=== PATIENT | male | born 1965 | race Caucasian/White ===

== ENCOUNTER 2024-03-18 11:08 | Observation (INO) ==
[2024-03-18 11:49] LABS: iSTAT Creatinine 2.2 mg/dl (0.6-1.3); iSTAT Ionized Calcium 1.06 mmol/l (1.12-1.32); iSTAT Potassium 3.4 mmol/L (3.3-5.0)
[2024-03-18] MEDS: SODIUM CHLORIDE 0.9% 1,000 ML IV STA (11:53)
[2024-03-18 12:11] LABS: Basophils # (auto) 0.08 K/uL (0.00-0.20); Basophils % (auto) 0.5 %; Eosinophils # (auto) 0.24 K/uL (0.00-0.50); Eosinophils % (auto) 1.5 %; Hematocrit (blood only) 46.9 % (42.0-52.0); Hemoglobin 16.2 g/dl (14.0-18.0); Immature Granulocytes # (auto) 0.08 K/uL (0.01-0.20); Immature Granulocytes % (auto) 0.5 %; Lymphocytes # (auto) 1.43 K/uL (1.20-3.40); Mean Corpuscular Hemoglobin 31.6 pg (25.0-34.0); Mean Corpuscular Hgb Conc 34.5 g/dL (32.0-36.0); Mean Corpuscular Volume 91.4 fL (80.0-100.0); Mean Platelet Volume 12.3 fL (9.4-12.4); Monocytes # (auto) 1.98 K/uL (0.11-0.59); Monocytes % (auto) 12.5 %; Neutrophils # (auto) 12.03 K/uL (1.40-6.50); Platelet Count 284 K/uL (130-400); RDW Coefficient of Variation 12.8 % (11.5-14.5); RDW Standard Deviation 43.1 fL (36.4-46.3); Red Blood Count 5.13 M/uL (4.70-6.10); White Blood Count 15.84 K/ul (4.8-10.8)
[2024-03-18 12:30] LABS: BUN Creatinine Ratio 20.4 (10-20); Calcium 9.5 mg/dl (8.6-10.3); Creatinine Clr Calc Pharmacy 45.1 ml/min; Est GFR (Non-African American) 34.5 ml/min; Potassium 3.4 mmol/L (3.5-5.1)
[2024-03-18 12:34] LABS: INR 1.3 (0.9-1.1); Partial Thromboplastin Time 27 Seconds (21-31); Prothrombin Time 13.5 Seconds (9.0-12.0)
--- NOTE | 2024-03-18 12:34 | Electrocardiogram Report ---
Test Reason : Blood Pressure : / mmHG Vent. Rate : 085 BPM Atrial Rate : 085 BPM P-R Int : 162 ms QRS Dur : 100 ms QT Int : 384 ms P-R-T Axes : 042 066 028 degrees QTc Int : 456 ms Normal sinus rhythm Normal ECG No previous ECGs available Confirmed by [place] Cheung ([id number]) on 03/18/2024 12:33:45 PM Referred By: Confirmed By:[place] Cheung
[2024-03-18 12:35] LABS: Troponin I High Sensitivity 7.9 pg/ml (0-20)
--- NOTE | 2024-03-18 12:41 | XRay Report ---
XR chest 1V not portable CLINICAL HISTORY: Sepsis. COMPARISON STUDY: No previous studies for comparison. FINDINGS: Lung volumes are mildly diminished. There is no consolidation to suggest pneumonia. Linear left lower lung density represents atelectasis. There is no pneumothorax or pleural effusion. Mild ca rdiomegaly. Mediastinal contours are normal. There is no evidence for pulmonary edema. IMPRESSION: No acute cardiopulmonary findings. ACT 112: Negative or not required by law. Electronically signed by: Abel Garrison M.D. 03/18/2024 12:40 PM
[2024-03-18 12:53] LABS: Albumin Globulin Ratio 1.1 (0.9-2); Albumin Level 4.5 gm/dl (3.4-5.0); Bilirubin,Total 2.7 mg/dl (0.2-1.0); Globulin 4.2 gm/dl (2.5-4.0); Magnesium 1.9 mg/dl (1.7-2.4); Total Protein 8.7 gm/dl (6.0-8.3)
[2024-03-18] MEDS: SODIUM CHLORIDE 0.9% 1,000 ML IV ONE (13:02)
--- NOTE | 2024-03-18 13:11 | Emergency Department Note ---
Impression & Plan Pancreatitis, Dehydration, LEILA (acute kidney injury) ED Provider Note Provider: Gustabo Huynh MD DATE OF SERVICE: 03/18/2024 CHIEF COMPLAINT: Abnormal blood work, pancreatitis HISTORY OF PRESENT ILLNESS: Patient is a 58-year-old history of hypertension presenting here today referred by his primary doctor after blood work done shows that he has pancreatitis. Patient states for about the last 10 to 14 days he is unsure and saying mid abdominal pain. States has had nausea but no significant diarrhea. Not been eating and drinking well as this makes him nauseous. States has been feeling a bit lightheaded and again has not been eating or drinking very much. States he does have maybe a drink of alcohol every day but not recently. Denies any trauma. Denies any lower abdominal pain. Denies a history of pancreatitis or kidney issues. Was scheduled to have an outpatient ultrasound today as he is a little bit tender in the upper abdomen of his gallbladder but got called by his doctor and came here for evaluation. PAST MEDICAL HISTORY: As noted above MEDICATIONS: Reviewed medications SOCIAL HISTORY: Normally 1 drink a day at the evening. PHYSICAL EXAM: GENERAL: alert and oriented in no acute distress on stretcher Head: normocephalic and atraumatic EYES: No injection, discharge or icterus. NECK: Trachea midline. ENT: Mucous membranes pink and mildly tacky LUNGS: Airway patent. No retractions. Breath sounds clear HEART: Regular rate and rhythm. No chest wall tenderness ABDOMEN: Soft and non-tender, without guarding or rebound. SKIN: Acyanotic, warm, dry, without rashes EXTREMITIES: Without swelling, tenderness or deformity NEUROLOGICAL: No focal deficits. No aphasia. No facial droop or slurred speech. Normal strength and tone in the extremities. Sensation to gross touch normal. Ambulatory. EK bpm normal sinus rhythm. No PVC or PAC. No acute ST segment elevation with some nonspecific T wave inversions. QTc 456. CONTINUOUS CARDIAC MONITORING: was ordered and showed a heart rate of 70s-80s bpm in normal sinus rhythm Patient's laboratory studies and imaging reviewed. Differential includes Appendicitis, testicular torsion, infections, diverticulitis, UTI, obstruction, mesenteric ischemia, aortic pathology, inflammatory bowel disease, renal colic, PUD, pancreatitis, biliary pathology, hernia, volvulus, constipation, as well as other pathologies. IMPRESSION/MEDICAL DECISION MAKING: Initially had some hypotension in triage but this improved quickly upon entering her room and was not optically tachycardic. Received IV fluids. Blood work reviewed from 2 days ago and repeat sent today. Evidence of worsening acute kidney injury. Lipase elevated although slightly downtrending today. LFTs mildly elevated but slightly improving today. No fevers. Slight leukocytosis with slight anemia.Troponin not elevated and doubt cardiac etiology. CT abdomen pelvis completed to further evaluate the pancreas and intra-abdominal organs. Patient does not appear severely unwell or septic at this point. Imaging does confirm acute pancreatitis with a mass or cyst lesion in the uncinate process. Acute cholecystitis is less likely in the setting of pancreatitis and no biliary duct dilations reported. Again has some slight epigastric tenderness on exam. Reached out discussed with GI on-call given leukocytosis and the CT findings in the setting of acute pancreatitis with a cyst. In discussion with Dr. Biggs agrees with plan to keep the patient here for treatments and hospitalist was consulted. Can pursue outpatient EUS not emergently. DIAGNOSIS: Pancreatitis, acute kidney injury, dehydration DISPOSITION: Hospitalist will evaluate Patient was agreeable with this plan. Past Med/Surg History Problem List (Updated 03/18/24 @ 15:42 by Jero Cheung PA-C) Alcohol use Hypocalcemia Hypokalemia LEILA (acute kidney injury) Acute pancreatitis Colon cancer screening Encounter for pre-operative examination Medical History HTN (hypertension) Surgical History No history of previous surgery Family History Other No family history of adverse response to anesthesia Social History Smoking Status: Never smoker Do You Dip or Chew Tobacco: No; Hx Alcohol Use: Yes Alcohol type: hard liquor Hx Substance Use: No Preferred Language: Upper Sorbian Communication Ability: Effective Clinical Psychologist Licensed Required: No Beliefs That Will Affect Care: None Current Living Situation: Spouse Feels Safe at Home: Yes Assistive Devices: Contacts and Glasses Allergies Allergies Allergy/AdvReac Type Severity Reaction Status Date / Time No Known Allergies Allergy Verified 03/18/24 15:08 Home Meds Home Medications Medication Instructions Recorded Confirmed chlorthalidone 25 mg tablet 25 mg PO QAM 01/13/23 03/18/24 valsartan 320 mg tablet 320 mg PO QAM 01/13/23 03/18/24 Results & Data (ED) Vital Signs Vital Signs - 24 hr 03/18/24 11:11 03/18/24 11:44 03/18/24 11:44 Temperature 36.8 C Temperature Source Temporal Artery Scan Pulse Rate 98 H 74 Pulse Rate [Apical] Pulse Rate from SpO2 Sensor Pulse Rhythm Regular Pulse Rhythm [Apical] Pulse Strength [Apical] Respiratory Rate 18 18 Respiratory Effort / Characteristics Non-Labored Spontaneous Respiratory Depth Normal Respiratory Pattern Blood Pressure 69/46 L Blood Pressure [Left Arm] Blood Pressure Mean 53 Blood Pressure Mean [Left Arm] Blood Pressure Position [Left Arm] Pulse Oximetry 98 96 97 Oxygen Delivery Method Room Air Room Air Room Air Sepsis Recent Fever Within 48 Hours No Sepsis New/Unexplained Change in Mental Status N/A Sepsis Action Taken by Nursing No Action Required 03/18/24 11:58 03/18/24 12:15 03/18/24 12:46 Temperature Temperature Source Pulse Rate 79 71 Pulse Rate [Apical] Pulse Rate from SpO2 Sensor 70 Pulse Rhythm Pulse Rhythm [Apical] Pulse Strength [Apical] Respiratory Rate 17 Respiratory Effort / Characteristics Respiratory Depth Respiratory Pattern Blood Pressure 109/74 Blood Pressure [Left Arm] Blood Pressure Mean 80 Blood Pressure Mean [Left Arm] Blood Pressure Position [Left Arm] Pulse Oximetry 96 Oxygen Delivery Method Sepsis Recent Fever Within 48 Hours Sepsis New/Unexplained Change in Mental Status Sepsis Action Taken by Nursing 03/18/24 12:50 03/18/24 12:58 03/18/24 13:00 Temperature Temperature Source Pulse Rate 74 71 Pulse Rate [Apical] Pulse Rate from SpO2 Sensor 74 68 Pulse Rhythm Pulse Rhythm [Apical] Pulse Strength [Apical] Respiratory Rate 18 14 Respiratory Effort / Characteristics Respiratory Depth Respiratory Pattern Blood Pressure 115/75 Blood Pressure [Left Arm] Blood Pressure Mean 86 Blood Pressure Mean [Left Arm] Blood Pressure Position [Left Arm] Pulse Oximetry 97 98 Oxygen Delivery Method Sepsis Recent Fever Within 48 Hours Sepsis New/Unexplained Change in Mental Status Sepsis Action Taken by Nursing 03/18/24 13:33 03/18/24 13:42 03/18/24 13:45 Temperature Temperature Source Pulse Rate 72 71 Pulse Rate [Apical] Pulse Rate from SpO2 Sensor 72 72 Pulse Rhythm Pulse Rhythm [Apical] Pulse Strength [Apical] Respiratory Rate 18 19 Respiratory Effort / Characteristics Respiratory Depth Respiratory Pattern Blood Pressure 115/75 Blood Pressure [Left Arm] Blood Pressure Mean 89 Blood Pressure Mean [Left Arm] Blood Pressure Position [Left Arm] Pulse Oximetry 95 96 Oxygen Delivery Method Sepsis Recent Fever Within 48 Hours Sepsis New/Unexplained Change in Mental Status Sepsis Action Taken by Nursing 03/18/24 15:33 Temperature Temperature Source Pulse Rate Pulse Rate [Apical] 72 Pulse Rate from SpO2 Sensor Pulse Rhythm Pulse Rhythm [Apical] Regular Pulse Strength [Apical] Normal Respiratory Rate 20 Respiratory Effort / Characteristics Non-Labored Respiratory Depth Normal Respiratory Pattern Regular Blood Pressure Blood Pressure [Left Arm] 129/85 Blood Pressure Mean Blood Pressure Mean [Left Arm] 99 Blood Pressure Position [Left Arm] Lying Pulse Oximetry 98 Oxygen Delivery Method Room Air Sepsis Recent Fever Within 48 Hours Sepsis New/Unexplained Change in Mental Status Sepsis Action Taken by Nursing Laboratory Data 03/18/24 11:25 03/18/24 11:25 Lab Results 03/18/24 03/18/24 03/18/24 Range/Units 11:25 11:37 14:00 WBC 15.84 H (4.8-10.8) K/ul RBC 5.13 (4.70-6.10) M/uL Hgb 16.2 (14.0-18.0) g/dl POC Hgb 17.0 (14.0-18.0) g/dl Hct 46.9 (42.0-52.0) % POC Hct 50 (42-52) % MCV 91.4 (80.0-100.0) fL MCH 31.6 (25.0-34.0) pg MCHC 34.5 (32.0-36.0) g/dL RDW Std Deviation 43.1 (36.4-46.3) fL RDW Coeff of Frandy 12.8 (11.5-14.5) % Plt Count 284 (130-400) K/uL MPV 12.3 (9.4-12.4) fL Immature Gran % (Auto) 0.5 % Neut % (Auto) 76.0 % Lymph % (Auto) 9.0 % Ceiba % (Auto) 12.5 % Eos % (Auto) 1.5 % Baso % (Auto) 0.5 % Neut # (Auto) 12.03 H (1.40-6.50) K/uL Lymph # (Auto) 1.43 (1.20-3.40) K/uL Ceiba # (Auto) 1.98 H (0.11-0.59) K/uL Eos # (Auto) 0.24 (0.00-0.50) K/uL Baso # (Auto) 0.08 (0.00-0.20) K/uL Immature Gran # (Auto) 0.08 (0.01-0.20) K/uL PT 13.5 H (9.0-12.0) Seconds INR 1.3 H (0.9-1.1) APTT 27 (21-31) Seconds PTT Ratio 1.0 POC Sodium 135 (135-144) mmol/L Sodium 135 L (136-145) mmol/L POC Potassium 3.4 (3.3-5.0) mmol/L Potassium 3.4 L (3.5-5.1) mmol/L POC Chloride 98 L (101-112) mmol/L Chloride 95 L (98-107) mmol/L Carbon Dioxide 25 (21-32) mmol/L POC Total CO2 24 (24-31) mmol/L Anion Gap 15 H (3-11) POC Anion Gap 17.0 (16-25) mmol/L POC BUN 38 H (7-18) mg/dl BUN 42 H (6-23) mg/dl Creatinine 2.06 H D (0.6-1.4) mg/dl POC Creatinine 2.2 H (0.6-1.3) mg/dl Est Cr Clr Drug Dosing 45.1 ml/min Est GFR ( Amer) 40.0 ml/min Est GFR (Non-Af Amer) 34.5 ml/min BUN/Creatinine Ratio 20.4 H (10-20) Glucose 169 H (70-99(Fasting)) mg/dl POC Glucose (other) 176 H (70-99) mg/dl Lactate 2.5 H* 1.7 (0.4-2.0) mmol/L Calcium 9.5 (8.6-10.3) mg/dl POC Ioniz Calcium Paula 1.06 L (1.12-1.32) mmol/l Magnesium 1.9 (1.7-2.4) mg/dl Total Bilirubin 2.7 H (0.2-1.0) mg/dl AST 68 H (13-39) U/L ALT 148 H (7-52) U/L Alkaline Phosphatase 88 (34-104) U/L Troponin I High Sens 7.9 (0-20) pg/ml Total Protein 8.7 H (6.0-8.3) gm/dl Albumin 4.5 (3.4-5.0) gm/dl Globulin 4.2 H (2.5-4.0) gm/dl Albumin/Globulin Ratio 1.1 (0.9-2) Lipase 1436 H (11-82) U/L Procalcitonin 0.44 (0-0.5) ng/ml Administered Medications Lactated Ringer's (Lr) 1,000 mls @ 150 mls/hr IV .Q6H40M DIONE Stop: 03/19/24 11:14 Last Admin: 03/18/24 15:31 Dose: 150 mls/hr Documented By: MAXWELL Discontinued Medications Sodium Chloride (Nss) 1,000 mls @ 999 mls/hr IV .Q1H1M STA Stop: 03/18/24 12:44 Last Infusion: 03/18/24 13:02 Dose: Infused Documented By: ОЛЕГ Admin: 03/18/24 11:53 Dose: 999 mls/hr Documented By: ОЛЕГ Sodium Chloride (Nss) 1,000 mls @ 999 mls/hr IV .Q1H1M ONE Stop: 03/18/24 12:59 Last Infusion: 03/18/24 14:35 Dose: Infused Documented By: ОЛЕГ Admin: 03/18/24 13:02 Dose: 999 mls/hr Documented By: ОЛЕГ Imaging Data Radiologist's Impression: Chest X-Ray 03/18/24 11:44 XR chest 1V not portable CLINICAL HISTORY: Sepsis. COMPARISON STUDY: No previous studies for comparison. FINDINGS: Lung volumes are mildly diminished. There is no consolidation to suggest pneumonia. Linear left lower lung density represents atelectasis. There is no pneumothorax or pleural effusion. Mild cardiomegaly. Mediastinal contours are normal. There is no evidence for pulmonary edema. IMPRESSION: No acute cardiopulmonary findings. ACT 112: Negative or not required by law. Electronically signed by: Abel Garrison M.D. 03/18/2024 12:40 PM Abdomen/Pelvis CT 03/18/24 11:59 CT OF THE ABDOMEN AND PELVIS WITHOUT CONTRAST CLINICAL HISTORY: Pancreatitis. Acute kidney injury. Vomiting. COMPARISON STUDY: No previous studies for comparison. TECHNIQUE: Axial images of the abdomen and pelvis were obtained without IV contrast. Images were reviewed in the axial, sagittal, and coronal planes. Automated exposure control was utilized for the study. A dose lowering technique was utilized adhering to the principles of ALARA. FINDINGS: Lung bases are unremarkable. Several bilateral renal calculi measure up to 5 mm. There are no ureteral calculi and there is no hydronephrosis. Water attenuation bilateral renal lesions are suboptimally assessed on this unenhanced exam but favor cysts. Prostate is enlarged, measuring 5.4 cm in transverse dimension. Evaluation the remainder of the abdomen and pelvis is suboptimal as unenhanced exam. There is hepatic steatosis. No hepatic lesions are identified. There is no biliary or pancreatic ductal dilatation. Spleen and adrenal glands are unremarkable. There is mild peripancreatic stranding. There is also stranding adjacent to the second portion of the duodenum. Stranding extends into the milo hepatis. Stranding adjacent to the gallbladder is likely related to pancreatitis. No peripancreatic fluid collections are noted. 2.6 x 2.1 cm hypodense mass-like lesion within the uncinate process is noted. This may contain faint calcifications. This abuts the superior mesenteric vein. There is no evidence for a bowel obstruction. The appendix is normal. Prominent peripancreatic lymph nodes are noted. Portacaval lymph node measures 1.8 x 1.2 cm. IMPRESSION: 1. Bilateral nephrolithiasis. No ureteral calculi or hydronephrosis. 2. Findings consistent with acute pancreatitis with peripancreatic stranding. Given wall thickening of the second portion of the duodenum with adjacent stranding, the findings raise the possibility of paraduodenal pancreatitis. In addition, suspected hypodense mass-like lesion or cystic lesion within the uncinate process which measures 2.6 x 2.1 cm. Benign and malignant etiologies are within the differential. Follow-up pancreatic protocol CT in one month is recommended. In addition, GI consultation for consideration for EUS is suggested. 3. Hepatic steatosis. 4. Mild gallbladder distention. Minimal pericholecystic stranding is likely related to acute pancreatitis. Acute cholecystitis is less likely although right upper quadrant ultrasound could be obtained. ACT 112: Positive. There are findings on this exam that require communication between the performing entity and the patient following Patient Test Result Information Act ([place] Act 112) guidelines. Electronically signed by: Abel Garrison M.D. 03/18/2024 1:22 PM Discharge Plan Visit Data Chief Complaint: Abdominal Pain Stated Complaint: ABD PAIN ED Provider: Gustabo Huynh Discharge Problem: Pancreatitis, Dehydration, LEILA (acute kidney injury) Patient Disposition: Being Evaluated by Hospitalist Forms Stand Alone Forms: [facility] [place] [employer] Prescriptions Prescriptions: No Action chlorthalidone 25 mg Tablet 25 mg PO QAM valsartan 320 mg Tablet 320 mg PO QAM Referrals Referrals: Davie Hernandez [Primary Care Provider] -
--- NOTE | 2024-03-18 13:23 | CT Scan Report ---
CT OF THE ABDOMEN AND PELVIS WITHOUT CONTRAST CLINICAL HISTORY: Pancreatitis. Acute kidney injury. Vomiting. COMPARISON STUDY: No previous studies for comparison. TECHNIQUE: Axial images of the abdomen and pelvis were obtained without IV contrast. Images were revi ewed in the axial, sagittal, and coronal planes. Automated exposure control was utilized for the cam dy. A dose lowering technique was utilized adhering to the principles of ALARA. FINDINGS: Lung bases are unremarkable. Several bilateral renal calculi measure up to 5 mm. There are no ureteral calculi and there is no hydronephrosis. Water attenuation bilateral renal lesions are sub optimally assessed on this unenhanced exam but favor cysts. Prostate is enlarged, measuring 5.4 cm in transverse dimension. Evaluation the remainder of the abdomen and pelvis is suboptimal as unenhanced exam. There is hepatic steatosis. No hepatic lesions are identified. There is no biliary or pancreat ic ductal dilatation. Spleen and adrenal glands are unremarkable. There is mild peripancreatic strand ing. There is also stranding adjacent to the second portion of the duodenum. Stranding extends into t he milo hepatis. Stranding adjacent to the gallbladder is likely related to pancreatitis. No peripan creatic fluid collections are noted. 2.6 x 2.1 cm hypodense mass-like lesion within the uncinate proc ess is noted. This may contain faint calcifications. This abuts the superior mesenteric vein. There i s no evidence for a bowel obstruction. The appendix is normal. Prominent peripancreatic lymph nodes a re noted. Portacaval lymph node measures 1.8 x 1.2 cm. IMPRESSION: 1. Bilateral nephrolithiasis. No ureteral calculi or hydronephrosis. 2. Findings consistent with acute pancreatitis with peripancreatic stranding. Given wall thickening o f the second portion of the duodenum with adjacent stranding, the findings raise the possibility of p araduodenal pancreatitis. In addition, suspected hypodense mass-like lesion or cystic lesion within t he uncinate process which measures 2.6 x 2.1 cm. Benign and malignant etiologies are within the diffe rential. Follow-up pancreatic protocol CT in one month is recommended. In addition, GI consultation f or consideration for EUS is suggested. 3. Hepatic steatosis. 4. Mild gallbladder distention. Minimal pericholecystic stranding is likely related to acute pancreat itis. Acute cholecystitis is less likely although right upper quadrant ultrasound could be obtained. ACT 112: Positive. There are findings on this exam that require communication between the performing entity and the patient following Patient Test Result Information Act ([place] Act 112) guidelines. Electronically signed by: Abel Garrison M.D. 03/18/2024 1:22 PM
--- NOTE | 2024-03-18 15:07 | History & Physical Report ---
Date of Service March 18, 2024 Assessment & Plan (1) Acute pancreatitis: Plan: -Admit to the PCU on tele and pusle oximetry -Currently hemodynamically stable, stable, on RA, and non-toxic appearing -Presented to the ED today with ongoing abdominal pain and outpatient labs concerning for acute pancreatitis -Patient's symptoms started on 03/14 and have been persistent -Noted to have CT abd/pelvis findings consistent with acute pancreatitis with peripancreatic stranding -CT also notes a mass-like lesion or cystic lesion within the uncinate process which measures 2.6 x 2.1 cm >No biliary or pancreatic ductal dilation noted -Initial lactate of 2.5 --> 1.7 after 2L NSS in the ED -Drinks approximately 1-2 beers a night, last drink was the evening of 03/13 -INR of 1.3, however, other LFT's are downtrending compared to initial levels on 03/16 -Will obtain triglyceride level on admission and US of the liver/gallbladder -GI has been consulted and will be following, they did review the images and are comfortable with the patient staying at our facility -S/P 2L NSS in the ED -Will start LR at 150 mL/hr x 3 bags which will run from this afternoon until 11am on 03/19/24 -Strict NPO for now -Pain control with prn morphine -SQ heparin for DVT PPX -Will obtain repeat CMP, mag, PT/INR this evening to monitor for improvement or decline -AM CBC, CMP, mag, PT/INR, fasting lipid panel (2) LEILA (acute kidney injury): Plan: -Cr of 2.0 today -Unsure of his previous baseline but Cr was 1.5 on 03/16 -Likely a combination of dehydration and ongoing antihypertensive/diuretic use this past week -No signs of obstruction on CT of the abd/pelvis -Will obtain UA when patient is able to provide a sample -Continue IV hydration , hold antihypertensives/diuretics for now -Avoid nephrotoxic agents -Monitor AM renal function and electrolytes (3) Hypokalemia: Plan: -Potassium of 3.4 today -Mag is 1.9 -Likely due to poor PO intake and continued diuretic use this week -Will give 3 bags of 10 meq IV KCL now -Continue to monitor on tele -Will monitor evening electrolytes (4) Alcohol use: Plan: -Normally drinks 1-2 beers nightly -Denies previous hx of withdrawal symptoms when he stops drinking -Last drink was the evening of 03/13 -No withdrawal symptoms at the time of admission -Continue supportive care -Stress importance of cessation and high risk of recurrent pancreatitis with even small amounts of alcohol moving forward (5) Hypocalcemia: Plan: -Ionized calcium of 1.06 -Likely due to poor PO intake and diuretic use -Will give 1gm IV calcium gluconate now -Monitor am calcium levels (6) HTN (hypertension): Plan: -Stable -Hold Chlorthalidone and Valsartan for now as he is hemodynamically stable with LEILA and dehydration Plan The patient was discussed with Dr. Henriquez at the time of the admission History of Present Illness Chief Complaint: Abnormal outpatient labs Primary Care Provider: Davie See is a 58 year old male with a PMH significant for HTN and alcohol use who presented to the [facility] ED on 03/18/24 with approximately one week of epigastric/LUQ abdominal pain and abnormal outpatient labs. The patient states that he started to develop epigastric/LUQ abdominal pain on 03/14. He initially attributed this to reflux and started taking an OTC PPI which did not improve his symptoms. His PCP ordered labs on 03/17 that were concerning for acute pancreatitis. Patient states that he has had poor oral intake over the past week due to his symptoms. He has had associated nausea and dry heaves. Eating/drinking does not really change his symptoms and the pain does not radiate. Denies recent fever, chills, chest pain, hematemesis, dysuria, hematuria, melena, diarrhea, LE swelling, and recent trauma. The patient typically drinks 1-2 beers nightly, last drink was the evening of 03/13. Denies brooks hx of withdrawal symptoms if he stops drinking. He was taking his Chlorthalidone and Valsartan daily despite his symptoms, his last doses were the am of 03/17/24. Denies a previous hx of pancreatitis. He is a full code and his is his POA. The ED spoke with Gastroenterology who reviewed the imaging and was comfortable with the patient staying at our facility for further evaluation/treatment. Please refer to Dr. Henriquez's attestation for any changes to the treatment plan Allergies Allergy/AdvReac Type Severity Reaction Status Date / Time No Known Allergies Allergy Verified 03/18/24 15:08 Home Medications Medication Instructions Recorded Confirmed Type chlorthalidone 25 mg tablet 25 mg PO QAM 01/13/23 03/18/24 History valsartan 320 mg tablet 320 mg PO QAM 01/13/23 03/18/24 History Past Med/Surg History Problem List Alcohol use Hypocalcemia Hypokalemia LEILA (acute kidney injury) Acute pancreatitis Colon cancer screening Encounter for pre-operative examination Medical History HTN (hypertension) Surgical History No history of previous surgery Family History Other No family history of adverse response to anesthesia Social History Smoking Status: Never smoker Do You Dip or Chew Tobacco: No; Hx Alcohol Use: Yes Alcohol type: hard liquor Hx Substance Use: No Preferred Language: Turkish Communication Ability: Effective Scraper Burrer Required: No Beliefs That Will Affect Care: None Current Living Situation: Spouse Feels Safe at Home: Yes Assistive Devices: Contacts and Glasses Physical Exam Physical Exam: Physical Exam: General: In no acute distress, stated age, well-nourished, non-toxic appearing HEENT: Normocephalic, atraumatic, no scleral icterus, pupils around round, symmetrical, and reactive to light, dry mucus membranes, trachea midline, no thyromegaly Chest/Pulm: No respiratory distress, symmetrical chest expansion, clear breath sounds throughout Cardiac: RRR, no murmurs noted Abdomen: Negative for ascites and bruising, normoactive bowel sounds, soft, non-tender to percussion throughout, tender to palpation in the epigastric/LUQ but otherwise non-tender, negative rebound tenderness throughout Musculoskeletal: Symmetrical and without signs of acute trauma, upper and lower extremities with full ROM, no atrophy, spasticity, or flaccidity Extremities: Radial, dorsalis pedis, and posterior tibial pulses are intact and symmetrical, no edema noted in the BL LE's Skin: Warm, dry, no rashes , lesions, or scars noted Neuro: Alert and oriented to person, place, month, year, and president, no focal defects,no tremors noted Psych: No acute distress, calm and cooperative during the exam Results & Data Results & Data Vital Signs (Past 12 Hours) Vital Signs Temp Pulse Resp BP Pulse Ox O2 Del Method 03/18/24 13:45 115/75 03/18/24 13:42 71 19 96 03/18/24 13:33 72 18 95 03/18/24 13:00 115/75 03/18/24 12:58 71 14 98 03/18/24 12:50 74 18 97 03/18/24 12:46 71 17 96 03/18/24 12:15 109/74 03/18/24 11:58 79 03/18/24 11:44 74 18 97 Room Air 03/18/24 11:44 96 Room Air 03/18/24 11:11 36.8 C 98 H 18 69/46 L 98 Room Air Laboratory Results Abnormal lab results 03/18/24 03/18/24 Range/Units 11:25 11:37 WBC 15.84 H (4.8-10.8) K/ul Neut # (Auto) 12.03 H (1.40-6.50) K/uL Rock # (Auto) 1.98 H (0.11-0.59) K/uL PT 13.5 H (9.0-12.0) Seconds INR 1.3 H (0.9-1.1) Sodium 135 L (136-145) mmol/L Potassium 3.4 L (3.5-5.1) mmol/L POC Chloride 98 L (101-112) mmol/L Chloride 95 L (98-107) mmol/L Anion Gap 15 H (3-11) POC BUN 38 H (7-18) mg/dl BUN 42 H (6-23) mg/dl Creatinine 2.06 H D (0.6-1.4) mg/dl POC Creatinine 2.2 H (0.6-1.3) mg/dl BUN/Creatinine Ratio 20.4 H (10-20) Glucose 169 H (70-99(Fasting)) mg/dl POC Glucose (other) 176 H (70-99) mg/dl Lactate 2.5 H* (0.4-2.0) mmol/L POC Ioniz Calcium Paula 1.06 L (1.12-1.32) mmol/l Total Bilirubin 2.7 H (0.2-1.0) mg/dl AST 68 H (13-39) U/L ALT 148 H (7-52) U/L Total Protein 8.7 H (6.0-8.3) gm/dl Globulin 4.2 H (2.5-4.0) gm/dl Lipase 1436 H (11-82) U/L Diagnostic Findings Chest X-Ray 03/18/24 11:44 XR chest 1V not portable CLINICAL HISTORY: Sepsis. COMPARISON STUDY: No previous studies for comparison. FINDINGS: Lung volumes are mildly diminished. There is no consolidation to suggest pneumonia. Linear left lower lung density represents atelectasis. There is no pneumothorax or pleural effusion. Mild cardiomegaly. Mediastinal contours are normal. There is no evidence for pulmonary edema. IMPRESSION: No acute cardiopulmonary findings. ACT 112: Negative or not required by law. Electronically signed by: Abel Garrison M.D. 03/18/2024 12:40 PM Abdomen/Pelvis CT 03/18/24 11:59 CT OF THE ABDOMEN AND PELVIS WITHOUT CONTRAST CLINICAL HISTORY: Pancreatitis. Acute kidney injury. Vomiting. COMPARISON STUDY: No previous studies for comparison. TECHNIQUE: Axial images of the abdomen and pelvis were obtained without IV contrast. Images were reviewed in the axial, sagittal, and coronal planes. Automated exposure control was utilized for the study. A dose lowering technique was utilized adhering to the principles of ALARA. FINDINGS: Lung bases are unremarkable. Several bilateral renal calculi measure up to 5 mm. There are no ureteral calculi and there is no hydronephrosis. Water attenuation bilateral renal lesions are suboptimally assessed on this unenhanced exam but favor cysts. Prostate is enlarged, measuring 5.4 cm in transverse dimension. Evaluation the remainder of the abdomen and pelvis is suboptimal as unenhanced exam. There is hepatic steatosis. No hepatic lesions are identified. There is no biliary or pancreatic ductal dilatation. Spleen and adrenal glands are unremarkable. There is mild peripancreatic stranding. There is also stranding adjacent to the second portion of the duodenum. Stranding extends into the milo hepatis. Stranding adjacent to the gallbladder is likely related to pancreatitis. No peripancreatic fluid collections are noted. 2.6 x 2.1 cm hypodense mass-like lesion within the uncinate process is noted. This may contain faint calcifications. This abuts the superior mesenteric vein. There is no evidence for a bowel obstruction. The appendix is normal. Prominent peripancreatic lymph nodes are noted. Portacaval lymph node measures 1.8 x 1.2 cm. IMPRESSION: 1. Bilateral nephrolithiasis. No ureteral calculi or hydronephrosis. 2. Findings consistent with acute pancreatitis with peripancreatic stranding. Given wall thickening of the second portion of the duodenum with adjacent stranding, the findings raise the possibility of paraduodenal pancreatitis. In addition, suspected hypodense mass-like lesion or cystic lesion within the uncinate process which measures 2.6 x 2.1 cm. Benign and malignant etiologies are within the differential. Follow-up pancreatic protocol CT in one month is recommended. In addition, GI consultation for consideration for EUS is suggested. 3. Hepatic steatosis. 4. Mild gallbladder distention. Minimal pericholecystic stranding is likely related to acute pancreatitis. Acute cholecystitis is less likely although right upper quadrant ultrasound could be obtained. ACT 112: Positive. There are findings on this exam that require communication between the performing entity and the patient following Patient Test Result Information Act ([place] Act 112) guidelines. Electronically signed by: Abel Garrison M.D. 03/18/2024 1:22 PM ECG Additional Comments: Normal sinus rhythm Normal ECG No previous ECGs available Confirmed by [place] Cheung ([id number]) on 03/18/2024 12:33:45 PM Code Status & VTE Plan Code Status Full code VTE Prophylaxis Plan VTE Prophylaxis will be ordered: Yes Supervising Physician Co-Signing Physician Notes Patient was seen and examined, agree with above assessment and plan , discussed with ECONOMICS LECTURER Patient presents with alcoholic pancreatitis, alcoholic hepatitis, acute kidney injury Abnormal CT findings noted Gastroenterology is consulted IV fluids Pain control Repeat blood work in the morning Patient will need outpatient workup for pancreatic lesion PG Care Time/CCT Total # of Minutes Spent Total Time Spent with Patient: Total time spent is greater than 50% in coordination of care (as documented) at patient's floor/unit and/or counseling patient: [place] [address] INT INP/OBS CARE 3/75MIN Patient Type New Medical Decision Making High Complexity Diagnoses Acute pancreatitis K85.90 LEILA (acute kidney injury) N17.9 Hypokalemia E87.6 Alcohol use Z78.9 Hypocalcemia E83.51 HTN (hypertension) I10
[2024-03-18] MEDS: LACTATED RINGER'S 1,000 ML IV SCH (15:31)
[2024-03-18] MEDS ORDERED: ONDANSETRON INJ 2 MG/ML 2 ML VIAL IV PRN (15:54)
[2024-03-18] MEDS: PANTOprazole 40 MG in SYRINGE 0 ML IV ONE (16:05)
--- NOTE | 2024-03-18 16:05 | Gastrointestinal Consultation ---
Date of Consultation March 18, 2024 Assessment & Plan (1) Acute pancreatitis: -Aggressive IV fluid hydration with 200 mL/hr -NPO -Pain control per primary team -Await lipid panel -Monitor for s/s of alcohol withdrawal. -Given concern for mass-like cystic lesion, he will need outpatient EUS once acute episode resolves Supervising Physician Co-Signing Physician Notes Agree with Ngoc Kohler PAC as above Interviewed and examined patient, and agree with above Abdomen soft, nontender, nondistended, positive positive bowel sounds Continue current therapy and supportive care Recommend aggressive IV fluid hydration to prevent Decreased perfusion pressure to the pancreas History of Present Illness Reason for Consultation: Pancreatitis History of Present Illness Patient is a 58 yo male who notes recent onset of epigastric abdominal pain. He sought evaluation from his PCP for this initially. Eventually he presented to the ED where he had a CT scan that indicated pancreatitis with peripancreatic stranding, wall thickening, & mass-like lesion was also noted. AST 68, ALT 148, T bili 2.7, INR 1.3. Lipase 1436. He notes his pain is improved from previous days. He does have an apparent LEILA noted with a BUN of 42 and Creatinine of 2.06. Patient does have a history of alcohol use. He is eager to be discharged from the hospital. No prior history of pancreatitis. He denies pertinent family history as well. Lipid panel is pending. Allergies Allergy/AdvReac Type Severity Reaction Status Date / Time No Known Allergies Allergy Verified 03/18/24 15:08 Home Medications Medication Instructions Recorded Confirmed Type chlorthalidone 25 mg tablet 25 mg PO QAM 01/13/23 03/18/24 History valsartan 320 mg tablet 320 mg PO QAM 01/13/23 03/18/24 History Patient History Medical History HTN (hypertension) Surgical History No history of previous surgery Family History Other No family history of adverse response to anesthesia Social History Smoking Status: Never smoker Do You Dip or Chew Tobacco: No; Hx Alcohol Use: Yes Alcohol type: hard liquor Hx Substance Use: No Preferred Language: Yi Communication Ability: Effective Accounting Machine Mechanic Required: No Beliefs That Will Affect Care: None Current Living Situation: Spouse Feels Safe at Home: Yes Assistive Devices: Contacts and Glasses Review of Systems Constitutional: no fever and no chills Respiratory: no cough and no dyspnea Cardiovascular: no chest pain Gastrointestinal: + abdominal pain Integumentary: no yellowing of the skin Physical Exam Constitutional: well developed Respiratory: normal respiratory effort Cardiovascular: Rate/Rhythm: regular rate Gastrointestinal (Abdomen): normal bowel sounds, soft, nontender, no hepatosplenomegaly Musculoskeletal: Head/Neck/Chest: normocephalic Psychiatric: Orientation: alert and oriented x 3 Results & Data Vital Signs (Past 12 Hours) Vital Signs Temp Pulse Pulse Resp BP BP Pulse Ox 03/18/24 15:56 80 03/18/24 15:33 72 20 129/85 98 03/18/24 13:45 115/75 03/18/24 13:42 71 19 96 03/18/24 13:33 72 18 95 03/18/24 13:00 115/75 03/18/24 12:58 71 14 98 03/18/24 12:50 74 18 97 03/18/24 12:46 71 17 96 03/18/24 12:15 109/74 03/18/24 11:58 79 03/18/24 11:44 74 18 97 03/18/24 11:44 96 03/18/24 11:11 36.8 C 98 H 18 69/46 L 98 O2 Del Method 03/18/24 15:56 03/18/24 15:33 Room Air 03/18/24 13:45 03/18/24 13:42 03/18/24 13:33 03/18/24 13:00 03/18/24 12:58 03/18/24 12:50 03/18/24 12:46 03/18/24 12:15 03/18/24 11:58 03/18/24 11:44 Room Air 03/18/24 11:44 Room Air 03/18/24 11:11 Room Air PG Care Time/CCT Total # of Minutes Spent Total Time Spent with Patient: Total time spent is greater than 50% in coordination of care (as documented) at patient's floor/unit and/or counseling patient: Coding Level of Care Code 56205 IN/OBS CONSULT LVL 4,60M Diagnoses Acute pancreatitis K85.90
[2024-03-18 16:26] LABS: C Reactive Protein 8.06 mg/dl (0-0.5)
[2024-03-18] MEDS: CALCIUM GLUCONATE 1,000 MG/60 ML BAG IV STA (16:37)
--- NOTE | 2024-03-18 16:51 | Ultrasound Report ---
US liver CLINICAL HISTORY: acute pancreatitis, US recommended by radiology COMPARISON STUDY: CT of the abdomen and pelvis performed earlier today. FINDINGS: Hepatic echogenicity is increased. No hepatic lesions are identified. There is no biliary d uctal dilatation. No peripancreatic fluid collection is noted. There is no pancreatic ductal dilatati on. 2.7 x 1.9 x 2.2 cm cystic/hypoechoic abnormality within the uncinate process corresponds to the f inding on CT performed earlier today. This contains internal septations and possible calcification. N o color flow is identified within this finding. The gallbladder is distended. There is no wall thicke sandro. No sonographic Forbes sign was elicited. There are no gallstones. No right hydronephrosis is pr esent. A right renal cyst is present. Small right renal calculi on CT are not well-visualized by sono graphy. IMPRESSION: 1. Distended gallbladder. However, no gallstones or sonographic Forbes sign. No convincing evidence f or acute cholecystitis. 2. Indeterminate 2.7 cm cystic lesion within the uncinate process which corresponds to the lesion onesimo wn on CT. No pancreatic ductal dilatation. No peripancreatic fluid collections. ACT 112: Negative or not required by law. Electronically signed by: Abel Garrison M.D. 03/18/2024 4:48 PM
[2024-03-18] MEDS: POTASSIUM CHLORIDE / WTR 10 MEQ/100 ML PLCT IV SCH (17:16)
[2024-03-18 17:40] LABS: Appearance Urine Clear (Clear); Bacteria Urine Automated None Seen (None Seen); Bilirubin Urine 1+ (Negative); Blood Urine Negative (Negative); Color Urine Dark Yellow; Glucose Urine UA Negative (Negative); Granular Casts Urine Present /lpf (None Prsent); Ketones Urine Negative (Negative); Leukocyte Esterase Urine Trace (Negative); Nitrite Urine Negative (Negative); Protein Urine 1+ (Negative); Specific Gravity Urine 1.018 (1.000-1.030); Urobilinogen Urine Negative (Negative); WBC Urine Automated 0-5 /hpf (0-5)
[2024-03-18 20:49] LABS: Albumin Globulin Ratio 1.1 (0.9-2); Albumin Level 3.8 gm/dl (3.4-5.0); BUN Creatinine Ratio 24.8 (10-20); Bilirubin,Total 2.3 mg/dl (0.2-1.0); Calcium 8.7 mg/dl (8.6-10.3); Creatinine Clr Calc Pharmacy 56.3 ml/min; Est GFR (African American) 52.3 ml/min; Est GFR (Non-African American) 45.1 ml/min; Globulin 3.4 gm/dl (2.5-4.0); Magnesium 1.7 mg/dl (1.7-2.4); Potassium 3.7 mmol/L (3.5-5.1); Total Protein 7.2 gm/dl (6.0-8.3)
[2024-03-18 20:59] LABS: INR 1.3 (0.9-1.1); Prothrombin Time 13.5 Seconds (9.0-12.0)
[2024-03-18] MEDS: HEPARIN SOD 5,000 UNIT/0.5 ML VIAL SQ SCH (21:11)
[2024-03-19] MEDS: MoRPHine SULFATE 4 MG/ML 1 ML CARP\\VIAL IV PRN (03:45)
[2024-03-19 07:18] LABS: INR 1.3 (0.9-1.1); Prothrombin Time 13.5 Seconds (9.0-12.0)
[2024-03-19 07:54] LABS: Basophils # (auto) 0.06 K/uL (0.00-0.20); Basophils % (auto) 0.4 %; Eosinophils # (auto) 0.29 K/uL (0.00-0.50); Eosinophils % (auto) 2.1 %; Hematocrit (blood only) 38.2 % (42.0-52.0); Hemoglobin 13.1 g/dl (14.0-18.0); Immature Granulocytes # (auto) 0.08 K/uL (0.01-0.20); Immature Granulocytes % (auto) 0.6 %; Lymphocytes # (auto) 1.54 K/uL (1.20-3.40); Lymphocytes % (auto) 11.2 %; Mean Corpuscular Hemoglobin 31.3 pg (25.0-34.0); Mean Corpuscular Hgb Conc 34.3 g/dL (32.0-36.0); Mean Corpuscular Volume 91.4 fL (80.0-100.0); Mean Platelet Volume 12.3 fL (9.4-12.4); Monocytes # (auto) 1.89 K/uL (0.11-0.59); Monocytes % (auto) 13.8 %; Neutrophils # (auto) 9.86 K/uL (1.40-6.50); Neutrophils % (auto) 71.9 %; Platelet Count 210 K/uL (130-400); RDW Coefficient of Variation 12.6 % (11.5-14.5); RDW Standard Deviation 41.9 fL (36.4-46.3); Red Blood Count 4.18 M/uL (4.70-6.10); White Blood Count 13.72 K/ul (4.8-10.8)
[2024-03-19 08:17] LABS: Albumin Level 3.4 gm/dl (3.4-5.0); Bilirubin,Total 3.2 mg/dl (0.2-1.0); Calcium 8.3 mg/dl (8.6-10.3); Magnesium 1.7 mg/dl (1.7-2.4); Potassium 3.5 mmol/L (3.5-5.1)
[2024-03-19 08:24] LABS: Albumin Globulin Ratio 1.1 (0.9-2); BUN Creatinine Ratio 26.2 (10-20); Chol HDL Ratio 5.3 (0-5); Creatinine Clr Calc Pharmacy 65.7 ml/min; Est GFR (African American) 63.2 ml/min; Est GFR (Non-African American) 54.5 ml/min; Globulin 3.1 gm/dl (2.5-4.0); Total Protein 6.5 gm/dl (6.0-8.3)
[2024-03-19] MEDS: FOLIC ACID 1 MG in SYRINGE 9.8 ML IV SCH (08:48)
[2024-03-19] MEDS: POTASSIUM CHLORIDE CRTAB 20 MEQ TABCR PO STA (10:06)
[2024-03-19] MEDS: PANTOprazole 40 MG in SYRINGE 0 ML IV SCH (10:07)
[2024-03-19] MEDS: MAGNESIUM SULFATE / D5W 1 GM/100 ML BAG IV SCH (10:08)
[2024-03-19] MEDS: THIAMINE HCL 100 MG in SYRINGE 9 ML IV SCH (10:45)
[2024-03-19] MEDS: PHYTONADIONE 5 MG TAB PO SCH (14:14)
--- NOTE | 2024-03-19 15:42 | Discharge Summary ---
Date of Service March 19, 2024 Admission HPI Per Admitting Provider Esa is a 58 year old male with a PMH significant for HTN and alcohol use who presented to the [facility] ED on 03/18/24 with approximately one week of epigastric/LUQ abdominal pain and abnormal outpatient labs. The patient states that he started to develop epigastric/LUQ abdominal pain on 03/14. He initially attributed this to reflux and started taking an OTC PPI which did not improve his symptoms. His PCP ordered labs on 03/17 that were concerning for acute pancreatitis. Patient states that he has had poor oral intake over the past week due to his symptoms. He has had associated nausea and dry heaves. Eating/drinking does not really change his symptoms and the pain does not radiate. Denies recent fever, chills, chest pain, hematemesis, dysuria, hematuria, melena, diarrhea, LE swelling, and recent trauma. The patient typically drinks 1-2 beers nightly, last drink was the evening of 03/13. Denies brooks hx of withdrawal symptoms if he stops drinking. He was taking his Chlorthalidone and Valsartan daily despite his symptoms, his last doses were the am of 03/17/24. Denies a previous hx of pancreatitis. He is a full code and his is his POA. Principal Diagnosis Acute pancreatitis, pancreas head lesion likely cyst, acute hepatitis - likely alcohol induced Discharge Exam PHYSICAL EXAMINATION Last 24h vital signs reviewed, see documentation in flowsheet General: comfortable appearing, no distress HEENT: Normocephalic, atraumatic, pupils round and equal, sclerae anicteric, no conjunctival injection, moist mucus membranes Lungs: Normal respiratory effort. Clear to auscultation bilaterally. No RRW Heart: Regular rate and rhythm, no murmurs. No JVD Abdomen: Soft, nontender, nondistended. Bowel sounds present. Extremities: Warm, dry, well-perfused. No extremity edema. Neuro: Alert and oriented x 4, face symmetric, moves 4 extremities well Psych: Normal affect and behavior Discharge Data Allergies Allergy/AdvReac Type Severity Reaction Status Date / Time No Known Allergies Allergy Verified 03/18/24 15:08 Consultations 03/18/24 14:33 ED Decision to Admit Stat 03/18/24 15:11 Consult Gastroenterology Routine Ordered Studies 03/18/24 11:59 CT abd pelvis wo con Stat 03/18/24 15:30 US liver Urgent Chest X-Ray 03/18/24 11:44 XR chest 1V not portable CLINICAL HISTORY: Sepsis. COMPARISON STUDY: No previous studies for comparison. FINDINGS: Lung volumes are mildly diminished. There is no consolidation to suggest pneumonia. Linear left lower lung density represents atelectasis. There is no pneumothorax or pleural effusion. Mild cardiomegaly. Mediastinal contours are normal. There is no evidence for pulmonary edema. IMPRESSION: No acute cardiopulmonary findings. ACT 112: Negative or not required by law. Electronically signed by: Abel Garrison M.D. 03/18/2024 12:40 PM Abdomen/Pelvis CT 03/18/24 11:59 CT OF THE ABDOMEN AND PELVIS WITHOUT CONTRAST CLINICAL HISTORY: Pancreatitis. Acute kidney injury. Vomiting. COMPARISON STUDY: No previous studies for comparison. TECHNIQUE: Axial images of the abdomen and pelvis were obtained without IV contrast. Images were reviewed in the axial, sagittal, and coronal planes. Automated exposure control was utilized for the study. A dose lowering tech nique was utilized adhering to the principles of ALARA. FINDINGS: Lung bases are unremarkable. Several bilateral renal calculi measure up to 5 mm. There are no ureteral calculi and there is no hydronephrosis. Water attenuation bilateral renal lesions are suboptimally assessed on this unenhanced exam but favor cysts. Prostate is enlarged, measuring 5.4 cm in transverse dimension. Evaluation the remainder of the abdomen and pelvis is suboptimal as unenhanced exam. There is hepatic steatosis. No hepatic lesions are identified. There is no biliary or pancreatic ductal dilatation. Spleen and adrenal glands are unremarkable. There is mild peripancreatic stranding. There is also stranding adjacent to the second portion of the duodenum. Stranding extends into the milo hepatis. Stranding adjacent to the gallbladder is likely related to pancreatitis. No peripancreatic fluid collections are noted. 2.6 x 2.1 cm hypodense mass-like lesion within the uncinate process is noted. This may contai n faint calcifications. This abuts the superior mesenteric vein. There is no evidence for a bowel obstruction. The appendix is normal. Prominent peripancreatic lymph nodes are noted. Portacaval lymph node measures 1.8 x 1.2 cm. IMPRESSION: 1. Bilateral nephrolithiasis. No ureteral calculi or hydronephrosis. 2. Findings consistent with acute pancreatitis with peripancreatic stranding. Given wall thickening of the second portion of the duodenum with adjacent stranding, the findings raise the possibility of paraduodenal pancreatitis. In addition, suspected hypodense mass-like lesion or cystic lesion within the uncinate process which measures 2.6 x 2.1 cm. Benign and malignant etiologies are within the differential. Follow-up pancreatic protocol CT in one month is recommended. In addition, GI consultation for consideration for EUS is suggested. 3. Hepatic steatosis. 4. Mild gallbladder distention. Minimal pericholecystic stranding is likely related to acute pancreatitis. Acute cholecystitis is less likely although right upper quadrant ultrasound could be obtained. ACT 112: Positive. There are findings on this exam that require communication between the performing entity and the patient following Patient Test Result Information Act ([place] Act 112) guidelines. Electronically signed by: Abel Garrison M.D. 03/18/2024 1:22 PM Liver Ultrasound 03/18/24 15:30 US liver CLINICAL HISTORY: acute pancreatitis, US recommended by radiology COMPARISON STUDY: CT of the abdomen and pelvis performed earlier today. FINDINGS: Hepatic echogenicity is increased. No hepatic lesions are identified. There is no biliary ductal dilatation. No peripancreatic fluid collection is noted. There is no pancreatic ductal dilatation. 2.7 x 1.9 x 2.2 cm cystic/hypoechoic abnormality within the uncinate process corresponds to the finding on CT performed earlier today. This contains internal septations and possible calcification. No color flow is identified within this finding. The gallbladder is distended. There is no wall thickening. No sonographic Forbes sign was elicited. There are no gallstones. No right hydronephrosis is present. A right renal cyst is present. Small right renal calculi on CT are not well- visualized by sonography. IMPRESSION: 1. Distended gallbladder. However, no gallstones or sonographic Forbes sign. No convincing evidence for acute cholecystitis. 2. Indeterminate 2.7 cm cystic lesion within the uncinate process which corresponds to the lesion shown on CT. No pancreatic ductal dilatation. No peripancreatic fluid collections. ACT 112: Negative or not required by law. Electronically signed by: Abel Garrison M.D. 03/18/2024 4:48 PM Hospital Course (1) Acute pancreatitis: 58 y/o man admitted with epigastric abdominal pain found to have acute pancreatitis Lipase elevated and CT abdomen with peripancreatic stranding consistent with acute pancreatitis No gallstones or biliary or pancreatic duct dilation seen on CT or ultrasound Triglycerides were normal Denies significant amount of alcohol use, however, pattern most consistent with alcoholic pancreatitis (perhaps duodenal pancreatitis) and mild alcoholic hepatitis -advised alcohol cessation and low fat diet -also will stop chlorthalidone which can cause acute pancreatitis as well as cholestasis Treated with aggressive IV fluids, pain control, antiemetics, 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 Adamant on dis charge tonight since he must work tomorrow. I prefer he would stay overnight to make sure bilirubin plateaus or decreases, however, I think he will improve so will discharge tonight and requested he follow up closely with PCP and get CMP done on follow up. Gave return precautions. Pancreas head lesion - appears likely cyst on CT. Gastroenterology outpatient referral made for EUS. I discussed this with Mr. Donald Possibility of duodenal pancreatitis based on CT finding - a form of chronic pancreatitis associated with alcoholic pancreatitis typically presenting in males in their 40s and 50s. If re-presenting with recurrent or chronic abdominal pain, nausea/vomiting consider evaluation of duodenum with EGD as duodenal stenosis can form Mild alcoholic hepatitis - LFT pattern typical of this with mild AST>ALT elevation, bilirubin plateau lagging behind improvement in AST, ALT and mild INR elevation to 1.3. Hepatic steatosis on imaging. Alternative diagnosis would be a passed gallstone - but no stones seen on imaging and would not explain mild coagulopathy -AST and ALT improved -bilirubin still increasing but only mildly elevated -gave po vitamin K in case nutritional component to mild coagulopathy -please check CMP and INR on follow up -advised alcohol cessation (2) LEILA (acute kidney injury): -Baseline unknown but Cr was 1.5 on 03/16 then molly to 2.0, back down to 1.5 after IVF and holding losartan, chlorthalidone -UA with granular casts. No urinary tract obstruction on CT -prerenal injury -instructed to hold valsartan for 1 week to allow renal recovery (3) Hypokalemia: Mild hypokalemia and hypomagnesemia replaced (4) Alcohol use: -Says he normally drinks 1-2 beers nightly -No withdrawal symptoms -see above (5) Hypocalcemia: Hypocalcemia related to pancreatitis, was replaced IV, persists but is asymptomatic (6) HTN (hypertension): -valsartan held one week for LEILA -chlorthalidone stopped in case precipitated pancreatitis -follow up with his primary care -normotensive in hospital Total Time Total Time Spent Total Time Spent (In Minutes): I personally spent: 40 minutes today on clinical care activities including: reviewing chart notes and vital signs reviewing labs reviewing studies discussion with retirement sales consultant(s) - GI discussion with bedside RN examining and counseling the patient writing orders, discharge instructions documentation Discharge Plan Discharge Items Patient Disposition: Home - Self-Care Reason For Visit: ACUTE, ALCOHOLIC PANCREATITIS Discharge Diagnosis: Alcohol related pancreatitis, probable head of pancreas cyst, mild alcoholic hepatitis Activity: Resume your previous activity Non-emergency contact: Primary Care Provider Call non-emergency contact if: you have any medication questions, your symptoms worsen and you have a fever Follow-up/Referrals: Davie Hernandez [Primary Care Provider] - Diet: Low Fat Addtl Attending Provider Instructions: You were treated for acute pancreatitis and mild hepatitis, likely related to alcohol intake Chlorthalidone can cause pancreatitis and jaundice, however Passing a gallstone can cause pancreatitis but we did not see any stones on CT or ultrasound imaging You have fatty liver on ultrasound and CT but it did not look like significant cirrhosis, so may be a reversible change with avoidance of alcohol, healthy diet, exercise There is a mass in the head of your pancreas - it is probably a benign cyst (fluid filled sac), however its important to make sure its not a tumor. We made a referral to outpatient gastroenterology to consider endoscopic ultrasound to further evaluate this. I strongly advise stopping any alcohol intake - its directly toxic to your pancreas and liver Follow a low fat diet to avoid stimulating your pancreas This is an early discharge because your labs haven't normalized yet, however, I understand that you need to go to work as scheduled Call Dr. Hernandez's office Thursday and get an appointment as soon as possible with lab tests (comprehensive metabolic panel and INR) to check on your kidney, liver function HOLD your blood pressure meds (chlorthalidone and valsartan) until you see Dr. Hernandez to let your kidneys recover. I would probably stop the chlorthalidone entirely because it can cause pancreatitis, discuss a replacement with Dr. Hernandez Return to the ED if you develop increasing abdominal pain, fever, jaundice (skin or eyes turning yellow) Pending Studies at Discharge: No Stand-Alone Forms: My [facility], Smoking Cessation Medications and DC Order Prescriptions: Held valsartan 320 mg Tablet 320 mg PO QAM Hold Instructions: Resume on 03/26/24. Discontinued chlorthalidone 25 mg Tablet 25 mg PO QAM Discharge Orders: Discharge Order (Routine); Ordered 03/19/24 Ordered By: Marina Burden/Other Patient Handouts: ED Pancreatitis Admission Data Admit Date/Time: 03/18/24 15:10 Attending Provider: Marina Gama Admit Provider: Chastity Henriquez Primary Care Provider: Davie Hernandez Other Providers: Chastity Henriquez; Pepe Biggs Coding Level of Care Code 50434 INP/OBS DISCH >30 MIN Diagnoses Acute pancreatitis K85.90 LEILA (acute kidney injury) N17.9 Hypokalemia E87.6 Alcohol use Z78.9 Hypocalcemia E83.51 HTN (hypertension) I10
== END 2024-03-19 18:23 | disposition home or self-care (01) ==
LOC: ED 11:08 → EDINP 15:10 → INTOOBSV 15:10 → SUATTDRO 15:10 → 4W 18:41

== ENCOUNTER 2024-08-11 21:52 | Inpatient (IN) ==
[2024-08-11 22:40] LABS: Basophils # (auto) 0.08 K/uL (0.00-0.20); Basophils % (auto) 0.6 %; Eosinophils % (auto) 2.3 %; Hematocrit (blood only) 40.3 % (42.0-52.0); Hemoglobin 13.7 g/dl (14.0-18.0); Immature Granulocytes # (auto) 0.07 K/uL (0.01-0.20); Immature Granulocytes % (auto) 0.5 %; Lymphocytes # (auto) 2.51 K/uL (1.20-3.40); Lymphocytes % (auto) 19.1 %; Mean Corpuscular Hemoglobin 29.1 pg (25.0-34.0); Mean Corpuscular Volume 85.7 fL (80.0-100.0); Mean Platelet Volume 11.9 fL (9.4-12.4); Monocytes # (auto) 1.07 K/uL (0.11-0.59); Monocytes % (auto) 8.2 %; Neutrophils # (auto) 9.08 K/uL (1.40-6.50); Neutrophils % (auto) 69.3 %; Platelet Count 348 K/uL (130-400); RDW Coefficient of Variation 13.2 % (11.5-14.5); RDW Standard Deviation 41.3 fL (36.4-46.3); White Blood Count 13.11 K/ul (4.8-10.8)
[2024-08-11 22:56] LABS: BUN Creatinine Ratio 19.3 (10-20); Calcium 10.6 mg/dl (8.6-10.3); Creatinine Clr Calc Pharmacy 46.8 ml/min; Potassium 3.2 mmol/L (3.5-5.1)
--- NOTE | 2024-08-11 23:02 | Emergency Department Note ---
Impression & Plan Acute pancreatitis, Acute lactic acidosis, Pancreas cyst ED Provider Note Name: JANEEN SOMMERS Age: 59 Sex: Male Arrives Via: Walk-In Informant: Patient, ED Provider: Albino Bee MD Chief Complaint: Abdominal pain Impression: As per impressions above Medical Decision Making: Pleasant 59-year-old gentleman arrives for evaluation of severe diffuse abdominal pain. Patient with history of pancreatitis several months ago similar to this. Patient is dehydrated on arrival with significant tenderness palpation. Initial labs had been obtained prior to my evaluation and lactate returned significantly elevated. He sent emergently for CT abdomen pelvis without contrast given renal insufficiency. CT does reveal large pancreatic cyst no evidence of free fluid or free air. Patient was given multiple rounds of IV Dilaudid with improvement. He was given 2 L of IV fluids for initial resuscitation. At this point there is no clear evidence of ischemic bowel and given pancreatitis I think that explains degree of pain. I feel his elevated lactic acid is due to dehydration from hunting all day in addition to severe pain on arrival rather than infectious related at this point. His liver function testing is fortunately benign without an elevated bilirubin. Lipase is significantly elevated. Other labs show mild white blood cell count elevation. I do not feel there is evidence of infection at this time. Patient is not severe sepsis or septic shock at this point. Triage/Nursing Notes reviewed by Me External Chart Review by me: GI records from March 18, 2024 reviewed by me reviewing his history of pancreatitis Differential:Pancreatitis, acute cholecystitis, aortic pathology, ischemia, perforation, ACS, amongst many other pathologies considered Vital Signs: reviewed and remarkable for hypertension Interventions: Normal saline bolus 2 L IV, Dilaudid 1 mg IV x 2, Zofran 4 mg IV Labs:ED labs Reviewed by me and remarkable for elevated lipase, elevated lactic acid amongst others Imaging:CT them pelvis without contrast as per my informal interpretation reveals pancreatitis with large pancreatic cyst. No evidence of free air or free fluid at this point. This is confirmed by radiologist. EKG:As per my interpretation. Indication abdominal pain. Normal sinus rhythm at 93 beats a minute QTc of 492. There is no ectopy nor ischemia. Compared to EKG of March 18, 2024 no significant change. Cardiac/Tele Monitoring: Cardiac Monitoring: An Order was placed for continuous cardiac monitoring. The monitor shows a rate of 90 with a normal sinus rhythm. Consults:I discussed case with Dr. Wadsworth of GI who feels it is reasonable to attempt initial management and treatment here at this facility. Advised continued hydration of patient. Discussed with Dr. Leigh of the [facility] hospitalist service who will bring in for further management. Plan: Disposition:Hospitalization. Condition: Good History of Present Illness: 59-year-old gentleman arrives for evaluation of abdominal pain. Patient notes at roughly 8 PM tonight he developed severe unrelenting abdominal pain. Associate with nausea and dry heaves. No inciting event. No falls, trauma, injuries. He had a TV dinner earlier in the night. Notes he was hunting throughout most of the day without any issue. Does have a history of pancreatitis most recently about 3 months ago. At times over the summer he did have episodes similar to this but they would only last a short while before resolving. Notes severe pain currently. No chest pain, shortness of breath, back pain, urinary symptoms, leg swelling, fevers, chills or other concerning signs or symptoms. Patient states pain is diffuse bandlike primarily across the mid abdomen. No medication prior to arrival. Denies any previous abdominal surgical history Past Medical History: Hypertension, pancreatitis Home Medications: Valsartan Allergies: No known drug allergy Vitals:Blood Pressure: 167/90, Pulse 96, RR 18, T 36.2C, O2 100% on RA Physical Exam: GENERAL: Patient is severely uncomfortable appearing and in moderate distress. Writhing on bed. RESPIRATORY: No dyspnea. Clear to auscultation and equal bilaterally. CARDIOVASCULAR: Tachy.No murmur appreciated. GASTROINTESTINAL: Diffuse abdominal tenderness palpation EXTREMITIES: Normal motion all extremities, no cyanosis, no edema. NEUROLOGIC: Alert and oriented. No focal neurologic deficits appreciated SKIN: No rash, no jaundice, no diaphoresis. PSYCH: Appropriate GCS: 15 ED Course: Times/Reassessments: Gradual improvement in pain patient agreeable to hospitalization. Albino Bee MD Past Med/Surg History Problem List (Updated 08/12/24 @ 02:18 by Albino Bee MD) Pancreas cyst (Acute) Acute lactic acidosis (Acute) Alcohol use Hypocalcemia Hypokalemia LEILA (acute kidney injury) Acute pancreatitis (Acute) Colon cancer screening Encounter for pre-operative examination Medical History HTN (hypertension) Surgical History No history of previous surgery Family History Other No family history of adverse response to anesthesia Social History Smoking Status: Never smoker Do You Dip or Chew Tobacco: No; Hx Alcohol Use: Yes Alcohol type: beer Hx Substance Use: No Preferred Language: Spanish Communication Ability: Effective Thiokol Operator Required: No Beliefs That Will Affect Care: None Current Living Situation: Spouse Feels Safe at Home: Yes Assistive Devices: Contacts and Glasses Allergies Allergies Allergy/AdvReac Type Severity Reaction Status Date / Time No Known Allergies Allergy Verified 03/18/24 15:08 Home Meds Home Medications Medication Instructions Recorded Confirmed valsartan 320 mg tablet 320 mg PO QAM 01/13/23 03/18/24 Results & Data (ED) Vital Signs Vital Signs - 24 hr 08/11/24 21:52 08/11/24 21:59 08/11/24 22:22 Temperature 36.2 C L Temperature Source Temporal Artery Scan Pulse Rate 96 H 97 H Pulse Rate [Right] 87 Pulse Rhythm Regular Pulse Rhythm [Right] Regular Pulse Strength [Right] Normal Respiratory Rate 20 18 Respiratory Effort / Characteristics Non-Labored Spontaneous Non-Labored Spontaneous Respiratory Depth Normal Normal Respiratory Pattern Regular Blood Pressure 167/90 H Blood Pressure [Left Arm] 165/137 H Blood Pressure Mean 115 Blood Pressure Mean [Left Arm] 146 Blood Pressure Position [Left Arm] Lying Pulse Oximetry 100 100 98 Oxygen Delivery Method Room Air Room Air Room Air Oxygen Flow Rate Sepsis Recent Fever Within 48 Hours No Sepsis New/Unexplained Change in Mental Status No Sepsis Action Taken by Nursing No Action Required 08/11/24 23:34 08/11/24 23:52 08/12/24 01:00 Temperature Temperature Source Pulse Rate 84 Pulse Rate [Right] 91 H 88 Pulse Rhythm Pulse Rhythm [Right] Regular Regular Pulse Strength [Right] Normal Normal Respiratory Rate 18 12 Respiratory Effort / Characteristics Non-Labored Spontaneous Non-Labored Spontaneous Respiratory Depth Normal Normal Respiratory Pattern Regular Blood Pressure Blood Pressure [Left Arm] 190/90 H Blood Pressure Mean Blood Pressure Mean [Left Arm] 123 Blood Pressure Position [Left Arm] Lying Pulse Oximetry 98 99 Oxygen Delivery Method Room Air Nasal Cannula Oxygen Flow Rate 2 Sepsis Recent Fever Within 48 Hours Sepsis New/Unexplained Change in Mental Status Sepsis Action Taken by Nursing Laboratory Data 08/11/24 22:18 08/11/24 22:18 Lab Results 08/11/24 08/11/24 Range/Units 22:18 22:36 WBC 13.11 H (4.8-10.8) K/ul RBC 4.70 (4.70-6.10) M/uL Hgb 13.7 L (14.0-18.0) g/dl Hct 40.3 L (42.0-52.0) % MCV 85.7 (80.0-100.0) fL MCH 29.1 (25.0-34.0) pg MCHC 34.0 (32.0-36.0) g/dL RDW Std Deviation 41.3 (36.4-46.3) fL RDW Coeff of Frandy 13.2 (11.5-14.5) % Plt Count 348 (130-400) K/uL MPV 11.9 (9.4-12.4) fL Immature Gran % (Auto) 0.5 % Neut % (Auto) 69.3 % Lymph % (Auto) 19.1 % Bates % (Auto) 8.2 % Eos % (Auto) 2.3 % Baso % (Auto) 0.6 % Neut # (Auto) 9.08 H (1.40-6.50) K/uL Lymph # (Auto) 2.51 (1.20-3.40) K/uL Bates # (Auto) 1.07 H (0.11-0.59) K/uL Eos # (Auto) 0.30 (0.00-0.50) K/uL Baso # (Auto) 0.08 (0.00-0.20) K/uL Immature Gran # (Auto) 0.07 (0.01-0.20) K/uL PT 11.7 (9.0-12.0) Seconds INR 1.1 (0.9-1.1) Sodium 139 (136-145) mmol/L Potassium 3.2 L (3.5-5.1) mmol/L Chloride 99 (98-107) mmol/L Carbon Dioxide 21 (21-32) mmol/L Anion Gap 19 H (3-11) BUN 35 H (6-23) mg/dl Creatinine 1.81 H (0.6-1.4) mg/dl Est Cr Clr Drug Dosing 46.8 ml/min eGFR 42.54 BUN/Creatinine Ratio 19.3 (10-20) Glucose 218 H (70-99(Fasting)) mg/dl Lactate 4.9 H* (0.4-2.0) mmol/L Calcium 10.6 H (8.6-10.3) mg/dl Total Bilirubin 0.5 (0.2-1.0) mg/dl AST 16 (13-39) U/L ALT 14 (7-52) U/L Alkaline Phosphatase 51 (34-104) U/L Troponin I High Sens 6.3 (0-20) pg/ml Total Protein 8.6 H (6.0-8.3) gm/dl Albumin 4.7 (3.4-5.0) gm/dl Globulin 3.9 (2.5-4.0) gm/dl Albumin/Globulin Ratio 1.2 (0.9-2) Lipase 2818 H (11-82) U/L Administered Medications Discontinued Medications Hydromorphone HCl (Hydromorphone Inj 1 Mg/Ml Syringe) 1 mg IV NOW STA Stop: 08/11/24 23:01 Last Admin: 08/11/24 23:07 Dose: 1 mg Documented By: SHERRY Hydromorphone HCl (Hydromorphone Inj 1 Mg/Ml Syringe) 1 mg IV NOW STA Stop: 08/11/24 23:19 Last Admin: 08/11/24 23:36 Dose: 1 mg Documented By: CUONG Hydromorphone HCl (Hydromorphone Inj 0.5 Mg/0.5 Ml Syr) 0.5 mg IV NOW STA Stop: 08/12/24 00:16 Last Admin: 08/12/24 00:37 Dose: 0.5 mg Documented By: CUONG Sodium Chloride (Nss) 1,000 mls @ 999 mls/hr IV .Q1H1M ONE Stop: 08/11/24 23:55 Last Infusion: 08/12/24 00:21 Dose: Infused Documented By: Admin: 08/11/24 23:08 Dose: 999 mls/hr Documented By: SHERRY Sodium Chloride (Nss) 1,000 mls @ 999 mls/hr IV .Q1H1M ONE Stop: 08/12/24 01:50 Last Infusion: 08/12/24 02:08 Dose: Infused Documented By: Admin: 08/12/24 01:06 Dose: 999 mls/hr Documented By: CUONG Lorazepam (Lorazepam 2 Mg/1 Ml Vial) 1 mg IV NOW STA Stop: 08/12/24 01:23 Last Admin: 08/12/24 01:42 Dose: 1 mg Documented By: CUONG Ondansetron HCl (Ondansetron Inj 2 Mg/Ml 2 Ml Vial) 4 mg IV NOW STA Stop: 08/11/24 23:01 Last Admin: 08/11/24 23:07 Dose: 4 mg Documented By: SHERRY Ondansetron HCl (Ondansetron Inj 2 Mg/Ml 2 Ml Vial) 4 mg IV NOW STA Stop: 08/11/24 23:19 Last Admin: 08/12/24 00:38 Dose: Not Given Documented By: CUONG Imaging Data Radiologist's Impression: Abdomen/Pelvis CT 08/11/24 22:55 Exam(s): CT ABDOMEN + PELVIS Without Contrast EXAM: CT Abdomen and Pelvis Without Intravenous Contrast CLINICAL HISTORY: Reason for exam: abdominal pain, elevated lactate. TECHNIQUE: Axial computed tomography images of the abdomen and pelvis without intravenous contrast. CTDI is 22.73 mGy and DLP is 1241.51 mGy-cm. Automated exposure control was utilized for the study. A dose lowering technique was utilized adhering to the principles of ALARA. COMPARISON: CT abdomen May 07, 2024. FINDINGS: Lung bases: Unremarkable. No mass. No consolidation. ABDOMEN: Liver: Unremarkable. Gallbladder and bile ducts: Unremarkable. No calcified stones. No ductal dilation. Pancreas: Cystic mass in the pancreatic head measures 7.2 x 6.3 cm. It has increased in size significantly when compared to April 29, 2024. This is not the typical location of a pancreatic pseudocyst. MRI with contrast recommended for further evaluation. Spleen: Unremarkable. No splenomegaly. Adrenals: Unremarkable. No mass. Kidneys and ureters: Bilateral nodular renal stones, measuring up to 5 mm in the LEFT kidney. Renal cysts measuring up to 4.5 cm and the LEFT kidney. No hydronephrosis. Stomach and bowel: Diverticulosis, without acute diverticulitis. No small bowel obstruction. No free intraperitoneal air. PELVIS: Appendix: No findings to suggest acute appendicitis. Bladder: Decompressed urinary bladder. No stones. Reproductive: Unremarkable as visualized. ABDOMEN and PELVIS: Intraperitoneal space: Unremarkable. No free air. No significant fluid collection. Bones/joints: Degenerative changes of the spine. No acute fracture. No dislocation. Soft tissues: Unremarkable. Vasculature: Unremarkable. No abdominal aortic aneurysm. Lymph nodes: Unremarkable. No enlarged lymph nodes. IMPRESSION: 1. Cystic mass in the pancreatic head measures 7.2 x 6.3 cm. It has increased in size significantly when compared to April 29, 2024. This is not the typical location of a pancreatic pseudocyst. MRI with contrast recommended for further evaluation. 2. Bilateral nodular renal stones, measuring up to 5 mm in the LEFT kidney. 3. Diverticulosis, without acute diverticulitis. No small bowel obstruction. No free intraperitoneal air. Electronically signed by: Dandy Hurst MD 08/12/24 00:11 AM Discharge Plan Visit Data Chief Complaint: Abdominal Pain Stated Complaint: ABD PAIN ED Provider: Albino Bee Discharge Problem: Acute pancreatitis, Acute lactic acidosis, Pancreas cyst Forms Stand Alone Forms: [facility] Prescriptions Prescriptions: No Action valsartan 320 mg Tablet 320 mg PO QAM Hold Instructions: Resume on 03/26/24. Referrals Referrals: Davie Hernandez [Primary Care Provider] - Discharge Problem: Acute pancreatitis Qualifiers: Pancreatitis type: other Acute pancreatitis complication: no infection or necrosis Qualified Code(s): K85.80 - Other acute pancreatitis without necrosis or infection
[2024-08-11 23:04] LABS: Troponin I High Sensitivity 6.3 pg/ml (0-20)
[2024-08-11] MEDS: ONDANSETRON INJ 2 MG/ML 2 ML VIAL IV STA (23:07)
[2024-08-11] MEDS: HYDROmorphone INJ 1 MG/ML SYRINGE IV STA ×2 (23:07→23:36)
[2024-08-11] MEDS: SODIUM CHLORIDE 0.9% 1,000 ML IV ONE (23:08)
[2024-08-11 23:15] LABS: INR 1.1 (0.9-1.1); Prothrombin Time 11.7 Seconds (9.0-12.0)
[2024-08-11 23:18] LABS: Albumin Globulin Ratio 1.2 (0.9-2); Albumin Level 4.7 gm/dl (3.4-5.0); Bilirubin,Total 0.5 mg/dl (0.2-1.0); Globulin 3.9 gm/dl (2.5-4.0); Total Protein 8.6 gm/dl (6.0-8.3)
--- NOTE | 2024-08-12 00:12 | CT Scan Report ---
Exam(s): CT ABDOMEN + PELVIS Without Contrast EXAM: CT Abdomen and Pelvis Without Intravenous Contrast CLINICAL HISTORY: Reason for exam: abdominal pain, elevated lactate. TECHNIQUE: Axial computed tomography images of the abdomen and pelvis without intravenous contrast. CTDI is 22.73 mGy and DLP is 1241.51 mGy-cm. Automated exposure control was utilized for the study. A dose lowering technique was utilized adhering to the principles of ALARA. COMPARISON: CT abdomen May 07, 2024. FINDINGS: Lung bases: Unremarkable. No mass. No consolidation. ABDOMEN: Liver: Unremarkable. Gallbladder and bile ducts: Unremarkable. No calcified stones. No ductal dilation. Pancreas: Cystic mass in the pancreatic head measures 7.2 x 6.3 cm. It has increased in size significantly when compared to April 29, 2024. This is not the typical location of a pancreatic pseudocyst. MRI with contrast recommended for further evaluation. Spleen: Unremarkable. No splenomegaly. Adrenals: Unremarkable. No mass. Kidneys and ureters: Bilateral nodular renal stones, measuring up to 5 mm in the LEFT kidney. Renal cysts measuring up to 4.5 cm and the LEFT kidney. No hydronephrosis. Stomach and bowel: Diverticulosis, without acute diverticulitis. No small bowel obstruction. No free intraperitoneal air. PELVIS: Appendix: No findings to suggest acute appendicitis. Bladder: Decompressed urinary bladder. No stones. Reproductive: Unremarkable as visualized. ABDOMEN and PELVIS: Intraperitoneal space: Unremarkable. No free air. No significant fluid collection. Bones/joints: Degenerative changes of the spine. No acute fracture. No dislocation. Soft tissues: Unremarkable. Vasculature: Unremarkable. No abdominal aortic aneurysm. Lymph nodes: Unremarkable. No enlarged lymph nodes. IMPRESSION: 1. Cystic mass in the pancreatic head measures 7.2 x 6.3 cm. It has increased in size significantly when compared to April 29, 2024. This is not the typical location of a pancreatic pseudocyst. MRI with contrast recommended for further evaluation. 2. Bilateral nodular renal stones, measuring up to 5 mm in the LEFT kidney. 3. Diverticulosis, without acute diverticulitis. No small bowel obstruction. No free intraperitoneal air. Electronically signed by: Dandy Hurst MD 08/12/24 00:11 AM
[2024-08-12] MEDS: HYDROmorphone INJ 0.5 MG/0.5 ML SYR IV STA (00:37)
[2024-08-12] MEDS: ONDANSETRON INJ 2 MG/ML 2 ML VIAL IV STA (00:38)
[2024-08-12] MEDS: SODIUM CHLORIDE 0.9% 1,000 ML IV ONE (01:06)
[2024-08-12] MEDS: LORazepam 2 MG/1 ML VIAL IV STA (01:42)
--- NOTE | 2024-08-12 01:42 | History & Physical Report ---
Date of Service August 12, 2024 Assessment & Plan (1) Acute pancreatitis: (2) Pancreas cyst: (3) LEILA (acute kidney injury): (4) Hypokalemia: (5) HTN (hypertension): (6) Abdominal pain: Plan Acute pancreatitis/pancreatic cyst/intractable abdominal pain- Neutrophilic leukocytosis, with WBC of 13.11 Lactic acidosis of 4.[address] scan of the abdomen and pelvis shows a cystic mass in the pancreatic head measuring 7.2 x 6.3 cm, that is increased in size significantly when compared to 04/29/2024. Recommendation was to order an MRI with and without contrast due to atypical location. MRI of abdomen pelvis with and without contrast has been performed and the resul ts are pending NPO Status post 2 L normal saline bolus from the ED, and received Dilaudid 1 mg IV x 2, and 0.5 mg IV x 1 Acetaminophen 1 g IV every 8 hours as needed for mild pain or fever Dilaudid 0.5 mg IV every 3 hours as needed for moderate pain Dilaudid 1 mg IV every 3 hours as needed for severe pain Zofran 4 mg IV every 6 hours as needed NSS at 80 mL/h x 1 L Consult gastroenterology Acute kidney injury superimposed on CKD- Creatinine 1.81, with base 1.41-2.06 IV fluids as noted above, and then recheck laboratories in the a.m. Hypertension- Valsartan 320 mg every morning is on hold Hydralazine 10 mg IV every 4 hours as needed for systolic blood pressure above 160 Hypokalemia- Potassium 3.2 on admission Give 10 mEq KCl rider IV x 1 Repeat laboratories in the a.m. Hyperglycemia- Glucose 218 on admission No reported history of diabetes If elevated in the a.m., will place on Accu-Cheks at that time Checking hemoglobin A1c History of Present Illness Chief Complaint: The patient presents to the emergency department complaint of severe generalized abdominal pain, nausea without vomiting, and feeling dehydrated with decreased oral intake. Primary Care Provider: Davie Hernandez The patient is a 59-year-old male with a past medical history of pancreatitis, and hypertension with previous admission to [facility] from 03/18-03/19/2024 for acute pancreatitis and acute kidney injury. He presents to the emergency department with the development of similar symptoms over the past few days, as noted above. Allergies Allergy/AdvReac Type Severity Reaction Status Date / Time No Known Allergies Allergy Verified 03/18/24 15:08 Home Medications Medication Instructions Recorded Confirmed Type valsartan 320 mg tablet 320 mg PO QAM 01/13/23 03/18/24 History Past Med/Surg History Problem List (Updated 08/12/24 @ 03:25 by Arun Leigh MD) Abdominal pain HTN (hypertension) Pancreas cyst (Acute) Acute lactic acidosis (Acute) Alcohol use Hypocalcemia Hypokalemia LEILA (acute kidney injury) Acute pancreatitis (Acute) Colon cancer screening Encounter for pre-operative examination Medical History HTN (hypertension) Surgical History No history of previous surgery Family History Other No family history of adverse response to anesthesia Social History Smoking Status: Never smoker Do You Dip or Chew Tobacco: No; Hx Alcohol Use: Yes Alcohol type: beer Hx Substance Use: No Preferred Language: Spanish Communication Ability: Effective Business Attorney Required: No Beliefs That Will Affect Care: None Current Living Situation: Spouse Feels Safe at Home: Yes Assistive Devices: Contacts and Glasses Review of Systems Review of Systems: The patient denies chest pain, palpitations, shortness of breath, dyspnea on exertion, cough, lower extremity swelling, sore throat, fevers, chills, sweats, vomiting, diarrhea , constipation, blood in urine or stool, dysuria, urinary frequency or urgency, lightheadedness, dizziness, headache, memory loss, loss of consciousness, rash, abnormal bruising or bleeding, imbalance, focal or generalized weakness, numbness or tingling in arms or legs, generalized arthralgias or myalgias, neck pain, or night sweats. The review of systems is otherwise negative other than for that already noted above, and at least 10 systems have been reviewed. Physical Exam Physical Exam: The patient is awake, alert and oriented 3, well developed and well nourished, normocephalic and atraumatic, lying in bed and in mild distress secondary to residual pain post Dilaudid IV HEENT--PERRL, EOMI, mucous membranes and oropharynx mildly dry. Neck--supple. No JVD. No bruits. Thyroid normal, trachea midline, no adenopathy. Heart--normal S1 and S2. No murmurs, rubs or gallops. Lungs--clear bilaterally, no respiratory distress, no accessory muscle use. Abdomen--normal bowel sounds and soft. Nontender. Nondistended. Extremities--no cyanosis or clubbing. No edema. There are good distal pulses b/l. Dermatologic--normal skin turgor, normal color, no abnormal lymph nodes, no rash. Neurologic--cranial nerves II through XII grossly intact. Rheumatologic--normal range of motion. Psychiatric--normal affect. Results & Data Results & Data Vital Signs (Past 12 Hours) Vital Signs Temp Pulse Pulse Resp BP BP Pulse Ox 08/12/24 01:00 88 12 99 08/11/24 23:52 91 H 18 190/90 H 98 08/11/24 23:34 84 08/11/24 22:22 97 H 98 08/11/24 21:59 36.2 C L 96 H 18 167/90 H 100 08/11/24 21:52 87 20 165/137 H 100 O2 Del Method O2 Flow Rate 08/12/24 01:00 Nasal Cannula 2 08/11/24 23:52 Room Air 08/11/24 23:34 08/11/24 22:22 Room Air 08/11/24 21:59 Room Air 08/11/24 21:52 Room Air Laboratory Results Laboratory Results WBC 13.11 K/ul (4.8-10.8) H 08/11/24 22:18 RBC 4.70 M/uL (4.70-6.10) 08/11/24 22:18 Hgb 13.7 g/dl (14.0-18.0) L 08/11/24 22:18 Hct 40.3 % (42.0-52.0) L 08/11/24 22:18 MCV 85.7 fL (80.0-100.0) 08/11/24 22:18 MCH 29.1 pg (25.0-34.0) 08/11/24 22:18 MCHC 34.0 g/dL (32.0-36.0) 08/11/24 22:18 RDW Std Deviation 41.3 fL (36.4-46.3) 08/11/24 22:18 RDW Coeff of Frandy 13.2 % (11.5-14.5) 08/11/24 22:18 Plt Count 348 K/uL (130-400) 08/11/24 22:18 MPV 11.9 fL (9.4-12.4) 08/11/24 22:18 Immature Gran % (Auto) 0.5 % 08/11/24 22:18 Neut % (Auto) 69.3 % 08/11/24 22:18 Lymph % (Auto) 19.1 % 08/11/24 22:18 Hart % (Auto) 8.2 % 08/11/24 22:18 Eos % (Auto) 2.3 % 08/11/24 22:18 Baso % (Auto) 0.6 % 08/11/24 22:18 Neut # (Auto) 9.08 K/uL (1.40-6.50) H 08/11/24 22:18 Lymph # (Auto) 2.51 K/uL (1.20-3.40) 08/11/24 22:18 Hart # (Auto) 1.07 K/uL (0.11-0.59) H 08/11/24 22:18 Eos # (Auto) 0.30 K/uL (0.00-0.50) 08/11/24 22:18 Baso # (Auto) 0.08 K/uL (0.00-0.20) 08/11/24 22:18 Immature Gran # (Auto) 0.07 K/uL (0.01-0.20) 08/11/24 22:18 PT 11.7 Seconds (9.0-12.0) 08/11/24 22:18 INR 1.1 (0.9-1.1) 08/11/24 22:18 Sodium 139 mmol/L (136-145) 08/11/24 22:18 Potassium 3.2 mmol/L (3.5-5.1) L 08/11/24 22:18 Chloride 99 mmol/L (98-107) 08/11/24 22:18 Carbon Dioxide 21 mmol/L (21-32) 08/11/24 22:18 Anion Gap 19 (3-11) H 08/11/24 22:18 BUN 35 mg/dl (6-23) H 08/11/24 22:18 Creatinine 1.81 mg/dl (0.6-1.4) H 08/11/24 22:18 Est Cr Clr Drug Dosing 46.8 ml/min 08/11/24 22:18 eGFR 42.54 08/11/24 22:18 BUN/Creatinine Ratio 19.3 (10-20) 08/11/24 22:18 Glucose 218 mg/dl (70-99(Fasting)) H 08/11/24 22:18 Lactate 4.9 mmol/L (0.4-2.0) H* 08/11/24 22:36 Calcium 10.6 mg/dl (8.6-10.3) H 08/11/24 22:18 Total Bilirubin 0.5 mg/dl (0.2-1.0) 08/11/24 22:18 AST 16 U/L (13-39) 08/11/24 22:18 ALT 14 U/L (7-52) 08/11/24 22:18 Alkaline Phosphatase 51 U/L (34-104) 08/11/24 22:18 Troponin I High Sens 6.3 pg/ml (0-20) 08/11/24 22:18 Total Protein 8.6 gm/dl (6.0-8.3) H 08/11/24 22:18 Albumin 4.7 gm/dl (3.4-5.0) 08/11/24 22:18 Globulin 3.9 gm/dl (2.5-4.0) 08/11/24 22:18 Albumin/Globulin Ratio 1.2 (0.9-2) 08/11/24 22:18 Lipase 2818 U/L (11-82) H 08/11/24 22:18 Impressions Abdomen/Pelvis CT 08/11/24 22:55 Exam(s): CT ABDOMEN + PELVIS Without Contrast EXAM: CT Abdomen and Pelvis Without Intravenous Contrast CLINICAL HISTORY: Reason for exam: abdominal pain, elevated lactate. TECHNIQUE: Axial computed tomography images of the abdomen and pelvis without intravenous contrast. CTDI is 22.73 mGy and DLP is 1241.51 mGy-cm. Automated exposure control was utilized for the study. A dose lowering technique was utilized adhering to the principles of ALARA. COMPARISON: CT abdomen May 07, 2024. FINDINGS: Lung bases: Unremarkable. No mass. No consolidation. ABDOMEN: Liver: Unremarkable. Gallbladder and bile ducts: Unremarkable. No calcified stones. No ductal dilation. Pancreas: Cystic mass in the pancreatic head measures 7.2 x 6.3 cm. It has increased in size significantly when compared to April 29, 2024. This is not the typical location of a pancreatic pseudocyst. MRI with contrast recommended for further evaluation. Spleen: Unremarkable. No splenomegaly. Adrenals: Unremarkable. No mass. Kidneys and ureters: Bilateral nodular renal stones, measuring up to 5 mm in the LEFT kidney. Renal cysts measuring up to 4.5 cm and the LEFT kidney. No hydronephrosis. Stomach and bowel: Diverticulosis, without acute diverticulitis. No small bowel obstruction. No free intraperitoneal air. PELVIS: Appendix: No findings to suggest acute appendicitis. Bladder: Decompressed urinary bladder. No stones. Reproductive: Unremarkable as visualized. ABDOMEN and PELVIS: Intraperitoneal space: Unremarkable. No free air. No significant fluid collection. Bones/joints: Degenerative changes of the spine. No acute fracture. No dislocation. Soft tissues: Unremarkable. Vasculature: Unremarkable. No abdominal aortic aneurysm. Lymph nodes: Unremarkable. No enlarged lymph nodes. IMPRESSION: 1. Cystic mass in the pancreatic head measures 7.2 x 6.3 cm. It has increased in size significantly when compared to April 29, 2024. This is not the typical location of a pancreatic pseudocyst. MRI with contrast recommended for further evaluation. 2. Bilateral nodular renal stones, measuring up to 5 mm in the LEFT kidney. 3. Diverticulosis, without acute diverticulitis. No small bowel obstruction. No free intraperitoneal air. Electronically signed by: Dandy Hurst MD 08/12/24 00:11 AM Code Status & VTE Plan Code Status Full code VTE Prophylaxis Plan VTE Prophylaxis will be ordered: Yes PG Care Time/CCT Total # of Minutes Spent Total Time Spent with Patient: Total time spent is greater than 50% in coordination of care (as documented) at patient's floor/unit and/or counseling patient: Coding Level of Care Code 62519 INT INP/OBS CARE 3/75MIN Diagnoses Acute pancreatitis K85.80 Acute pancreatitis complication: no infection or necrosis Pancreatitis type: other Pancreas cyst K86.2 LEILA (acute kidney injury) N17.9 Hypokalemia E87.6 HTN (hypertension) I10 Abdominal pain R10.9 (1) Acute pancreatitis Acute pancreatitis complication: no infection or necrosis Pancreatitis type: other Qualified Code(s): K85.80 - Other acute pancreatitis without necrosis or infection
[2024-08-12] MEDS: GADOBUTROL 65ML VIAL IV ONE (02:55)
[2024-08-12] MEDS ORDERED: HYDROmorphone INJ 0.5 MG/0.5 ML SYR IV PRN (03:29)
[2024-08-12] MEDS ORDERED: ACETAMINOPHEN 1,000 MG/100 ML VIAL IV PRN (03:29)
[2024-08-12] MEDS ORDERED: ONDANSETRON INJ 2 MG/ML 2 ML VIAL IV PRN (03:29)
[2024-08-12] MEDS ORDERED: HYDROmorphone INJ 1 MG/ML SYRINGE IV PRN (03:29)
[2024-08-12] MEDS ORDERED: hydrALAZINE HCL 20 MG/ML VIAL IV PRN (03:30)
[2024-08-12] MEDS: POTASSIUM CHLORIDE / WTR 10 MEQ/100 ML PLCT IV ONE (03:48)
[2024-08-12] MEDS: SODIUM CHLORIDE 0.9% 1,000 ML IV SCH (03:48)
--- NOTE | 2024-08-12 04:06 | Magnetic Resonance Report ---
Exam(s): MRI ABDOMEN W/WO Contrast IV Amt: 8.5cc gadavist EXAM: MR Abdomen Without and With Intravenous Contrast CLINICAL HISTORY: Reason for exam: pancreatic cyst increasing in size. TECHNIQUE: Multiplanar magnetic resonance images of the abdomen without and with intravenous contrast. CONTRAST: Patient received 8.5cc Gadavist of IV contrast COMPARISON: CT scans dated 08/11/2024 and 04/29/2024. FINDINGS: Artifact degrades image quality somewhat limiting the study. Liver: The liver is enlarged and of diffuse signal abnormality. Gallbladder and bile ducts: No filling defects are noted.. No ductal dilation. Pancreas: There is a 6 cm complex lesion noted in the pancreatic head. No significant contrast enhancement is noted. Spleen: The spleen is mildly enlarged.. Adrenals: No mass. Kidneys and ureters: No hydronephrosis. There are nonenhancing rounded lesions within the kidneys. Stomach and bowel: The stomach is distended containing retained foodstuffs, fluid and air. There is air and stool noted in the colon. Intraperitoneal space: No significant fluid collection. Soft tissues: Unremarkable. Vasculature: No abdominal aortic aneurysm. Lymph nodes: No enlarged lymph nodes. IMPRESSION: There is a 6 cm complex nonenhancing lesion noted in the pancreatic head. This may represent a complex pseudocyst. It does not appear to represent a cystic neoplasm. There are bilateral renal cysts. The liver is enlarged and of diffuse signal abnormality which may be due to fatty infiltration. Mild splenomegaly. Electronically signed by: Jus Hawkins MD 08/12/24 04:04 AM
[2024-08-12 04:41] LABS: Appearance Urine Clear (Clear); Bacteria Urine Automated None Seen (None Seen); Bilirubin Urine Negative (Negative); Blood Urine Negative (Negative); Color Urine Yellow; Epithelial Cell Urine Auto 0-2 /hpf (0-2); Glucose Urine UA 1+ (Negative); Ketones Urine 1+ (Negative); Leukocyte Esterase Urine Negative (Negative); Nitrite Urine Negative (Negative); Protein Urine Trace (Negative); RBC Urine Automated 0-2 /hpf (0-2); Specific Gravity Urine 1.021 (1.000-1.030); Urobilinogen Urine Negative (Negative); WBC Urine Automated 0-5 /hpf (0-5); pH Urine 5.5 (4.5-7.5)
[2024-08-12 08:31] LABS: BUN Creatinine Ratio 21.1 (10-20); Calcium 8.6 mg/dl (8.6-10.3); Creatinine Clr Calc Pharmacy 59.7 ml/min; Potassium 3.6 mmol/L (3.5-5.1)
[2024-08-12] MEDS: PANTOprazole 40 MG/10 ML SYR IV SCH (08:41)
[2024-08-12 09:21] LABS: Estimated Average Glucose 180 mg/dl; Hemoglobin A1C 7.9 % (4.5-5.6)
--- NOTE | 2024-08-12 11:18 | Gastrointestinal Consultation ---
Date of Consultation August 12, 2024 Assessment & Plan (1) Abdominal pain: (2) Pancreas cyst: Plan Lipase elevation in the setting of large pancreatic head lesion for which patient was to have EUS in March 2024 but did not move forward with scheduling. -Supportive care with pain control, NPO status, & IV fluid hydration -Will need a new referral for outpatient EUS (Closest would be [facility] at [place] or [facility] in [place]). Would ask that case management assist in arranging this prior to his hospital discharge so that he leaves with a plan in place as he did not follow through with arranging this test previously. Supervising Physician Co-Signing Physician Notes I saw and examined this patient with our nurse practitioner and agree with her assessment and plan. Patient with recurrent pancreatitis and expanding pancreatic cyst. Etiology of pancreatitis unclear. Imaging rules out biliary tract disease as cause. Clinically improving today can advance diet as tolera linda. Ultimately he needs further evaluation of this complex cyst in his pancreas at a tertiary care center where endoscopic ultrasound is available. Continue hydration and monitoring his lab work. History of Present Illness Reason for Consultation: "Acute pancreatitis" Attending Physician: Amber Shelby MD History of Present Illness Patient is a 59 yo male who presented to the ED for abdominal pain (epigastric) that began at 8 PM abruptly last night after a day of hunting. He notes the pain was severe and made him feel as though he was going to vomit so he decided to go to the ED. He was admitted several months ago with a similar episode and was noted to have a large pancreatic head lesion. He was arranged for an EUS but did not follow through. Upon review of the referral in the [facility], it is documented that attempts were made to call the patient on 03/29/24, 03/30/24, & 04/26/24 without answer. It is documented in their chart that there was no voicemail. On 04/26/24 case management was contacted for assistance in reaching patient. Patient's notes that [facility] had reached out to schedule an EUS, but notes that her is a stubborn man and was upset that someone had told him that alcohol could be the cause of his issues. She also cites he felt like things weren't explained well enough to get him to schedule any further tests. Upon admission to the hospital his Lipase is noted to be 2643. Lactate on admission 4.9. AST 16, ALT 14, T bili 0.5. WBC count 13,110. CT results: IMPRESSION: 1. Cystic mass in the pancreatic head measures 7.2 x 6.3 cm. It has increased in size significantly when compared to April 29, 2024. This is not the typical location of a pancreatic pseudocyst. MRI with contrast recommended for further evaluation. 2. Bilateral nodular renal stones, measuring up to 5 mm in the LEFT kidney. 3. Diverticulosis, without acute diverticulitis. No small bowel obstruction. No free intraperitoneal air. MRI results: IMPRESSION: There is a 6 cm complex nonenhancing lesion noted in the pancreatic head. This may represent a complex pseudocyst. It does not appear to represent a cystic neoplasm. There are bilateral renal cysts. The liver is enlarged and of diffuse signal abnormality which may be due to fatty infiltration. Mild splenomegaly. Otherwise no other symptoms reported. No pertinent family history. Allergies Allergy/AdvReac Type Severity Reaction Status Date / Time No Known Allergies Allergy Verified 03/18/24 15:08 Home Medications Medication Instructions Recorded Confirmed Type valsartan 320 mg tablet 320 mg PO QAM 01/13/23 03/18/24 History Patient History Surgical History No history of previous surgery Family History Other No family history of adverse response to anesthesia Social History Smoking Status: Never smoker Do You Dip or Chew Tobacco: No; Hx Alcohol Use: No Hx Substance Use: No Preferred Language: Mozambican Communication Ability: Effective Rubber Heel And Sole Press Tender Required: No Beliefs That Will Affect Care: None Current Living Situation: Spouse Feels Safe at Home: Yes Assistive Devices: None Review of Systems Constitutional: no fever and no chills Respiratory: no cough and no dyspnea Cardiovascular: no chest pain Gastrointestinal: + abdominal pain Physical Exam Constitutional: well developed Respiratory: normal respiratory effort Cardiovascular: Rate/Rhythm: regular rate Gastrointestinal (Abdomen): Inspection/Auscultation: abdomen normal to inspection Psychiatric: Orientation: alert and oriented x 3 Results & Data Vital Signs (Past 12 Hours) Vital Signs Temp Pulse Pulse Resp BP Pulse Ox O2 Del Method 08/12/24 07:18 36.7 C 90 18 151/85 H 95 Room Air 08/12/24 04:16 36.5 C 101 H 18 175/94 H 96 Nasal Cannula 08/12/24 03:15 Nasal Cannula 08/12/24 02:58 91 H 20 171/109 H 94 Room Air 08/12/24 01:00 88 12 99 Nasal Cannula 08/11/24 23:52 91 H 18 190/90 H 98 Room Air 08/11/24 23:34 84 O2 Flow Rate 08/12/24 07:18 08/12/24 04:16 2 08/12/24 03:15 2 08/12/24 02:58 08/12/24 01:00 2 08/11/24 23:52 08/11/24 23:34 PG Care Time/CCT Total # of Minutes Spent Total Time Spent with Patient: Total time spent is greater than 50% in coordination of care (as documented) at patient's floor/unit and/or counseling patient: Coding Level of Care Code 81957 IN/OBS CONSULT LVL 4,60M Diagnoses Abdominal pain R10.9 Pancreas cyst K86.2
[2024-08-12] MEDS ORDERED: DEXTROSE 50% 50 ML SYRINGE IV PRN (16:34)
[2024-08-12] MEDS ORDERED: CARBOHYDRATES FOR HYPOGLYCEMIA PO PRN (16:34)
[2024-08-12] MEDS ORDERED: GLUCOSE 10 TAB/TUBE PO PRN (16:34)
[2024-08-12] MEDS ORDERED: GLUCAGON FOR INJ 1 MG VIAL SQ PRN (16:34)
[2024-08-12] MEDS ORDERED: GLUCOSE 40% GEL 15 GM TUBE PO PRN (16:34)
--- NOTE | 2024-08-12 17:04 | History & Physical Bridge Note ---
Date of Service August 12, 2024 History & Physical Bridge Note I have examined the patient, reviewed the History & Physical and in the interval since the performance of the History & Physical I have noted the following changes of clinical significance: Pt feeling better, has no pain at all, feeling hungry. He is not drinking any EtOH and reports previously he only had 1 beer per night. Discussed pancreatic pseudocyst and need for EUS. Asked Nurse deb to set this up Vitals reviewed NAD, AAOx3 RRR no mgr CTAB no wcr Abd +BS soft NT ND Ext no edema CBC, BMP, HgbA1C reviewed MRI reviewed 59 yo male here with recurrent pancreatitis with likely large pseudocyst, and new onset DM II. Improved, adv to clears and then to low fiber for AM, stop IVFs Previous workup neg for etiology and no longer drinking EtOH Could be chlorthalidone or valsartan?-Dc both and start amlodipine for HTN Follow up for EUS as outpt Dc tomorrow if tolerating diet
[2024-08-12] MEDS ORDERED: Nursing to Pharmacy Communication SCH (17:30)
[2024-08-12] MEDS: INSULIN ASPART PER UNIT CHARGE SC SCH (17:45)
[2024-08-12] MEDS ORDERED: INSULIN ASPART PER UNIT CHARGE SC SCH (18:00)
[2024-08-12 21:46] VITALS: TEMP 99.1
--- NOTE | 2024-08-12 23:57 | Electrocardiogram Report ---
Test Reason : Blood Pressure : */* mmHG Vent. Rate : 93 BPM Atrial Rate : 93 BPM P-R Int : 184 ms QRS Dur : 110 ms QT Int : 396 ms P-R-T Axes : 22 72 34 degrees QTcB Int : 492 ms Poor data quality, interpretation may be adversely affected Normal sinus rhythm Prolonged QT When compared with ECG of 18-Mar-2024 11:21, No significant change was found Confirmed by Bladimir Wagner ([id number]) on 08/12/2024 11:56:32 PM Referred By: REFERRED SELF Confirmed By: Bladimir Wagner
[2024-08-13 07:42] LABS: Basophils # (auto) 0.05 K/uL (0.00-0.20); Basophils % (auto) 0.4 %; Eosinophils # (auto) 0.22 K/uL (0.00-0.50); Eosinophils % (auto) 1.6 %; Hematocrit (blood only) 34.7 % (42.0-52.0); Hemoglobin 11.6 g/dl (14.0-18.0); Immature Granulocytes # (auto) 0.05 K/uL (0.01-0.20); Immature Granulocytes % (auto) 0.4 %; Lymphocytes # (auto) 1.39 K/uL (1.20-3.40); Lymphocytes % (auto) 10.2 %; Mean Corpuscular Hemoglobin 29.2 pg (25.0-34.0); Mean Corpuscular Hgb Conc 33.4 g/dL (32.0-36.0); Mean Corpuscular Volume 87.4 fL (80.0-100.0); Mean Platelet Volume 12.1 fL (9.4-12.4); Monocytes # (auto) 1.62 K/uL (0.11-0.59); Monocytes % (auto) 11.9 %; Neutrophils # (auto) 10.27 K/uL (1.40-6.50); Neutrophils % (auto) 75.5 %; Platelet Count 266 K/uL (130-400); RDW Coefficient of Variation 13.4 % (11.5-14.5); RDW Standard Deviation 43.2 fL (36.4-46.3); Red Blood Count 3.97 M/uL (4.70-6.10)
[2024-08-13 07:54] VITALS: BP 126/59; PULSE 87; RESP 16; O2SAT 95
[2024-08-13 08:13] LABS: Albumin Globulin Ratio 1.3 (0.9-2); Albumin Level 3.7 gm/dl (3.4-5.0); BUN Creatinine Ratio 15.9 (10-20); Bilirubin,Total 0.9 mg/dl (0.2-1.0); Calcium 8.6 mg/dl (8.6-10.3); Globulin 2.9 gm/dl (2.5-4.0); Magnesium 1.5 mg/dl (1.7-2.4); Potassium 3.3 mmol/L (3.5-5.1); Total Protein 6.6 gm/dl (6.0-8.3)
[2024-08-13] MEDS: MAGNESIUM SULFATE / D5W 1 GM/100 ML BAG IV ONE (09:16)
[2024-08-13] MEDS: POTASSIUM CHLORIDE CRTAB 20 MEQ TABCR PO STA (09:16)
[2024-08-13] MEDS: amLODIPine BESYLATE 5 MG TAB PO SCH (09:17)
--- NOTE | 2024-08-13 11:06 | Discharge Summary ---
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 Lipase elevated and coming down, LFTs normal, no biliary disease on MRI or CT. Previous workup neg for other causes of pancreatitis COuld be secondary to chlorthalidone and valsartan-dc these and start alternative He is no longer drinking any EtOH Leukocytosis mild and likely related to pancreatitis. Had bowel rest for one day, IVFs, now pain resolved, amber low fat diet and stable for discharge to home Consult gastroenterology appreciated--> plan for EUS as outpt for large cyst- Nurse Navigator making this referral to [email or web address] (2) Pancreas cyst: as above (3) LEILA (acute kidney injury): secondary to dehydration, ARB and thiazide use-now resolved with IVFs and holding those meds dc valsartan and chlorthalidone Tolerating po (4) Hypokalemia: mildly low due to poor po intake-replaced with po KCl (5) HTN (hypertension): BPs stable for now but stopping ARB, thiazide as above start amlodipine 5mg po daily and f/u with PCP (6) Diabetes mellitus: Here with new onset DM II. 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 (7) Hypomagnesemia: replaced Plan Dispo-stable for dc to home, discussed care with on day of discharge Notes For Next Care Provider New diagnosis of Diabetes mellitus-needs close follow up Needs EUS for large pancreatic complex cyst Medication Changes From Visit Added amlodipine 5mg po daily Discontinued valsartan and chlorthalidone Added metformin 500mg XR po once daily Admission HPI Per Admitting Provider The patient is a 59-year-old male with a past medical history of pancreatitis, and hypertension with previous admission to [facility] from 03/18-03/19/2024 for acute pancreatitis and acute kidney injury. He presents to the emergency department with the development of similar symptoms over the past few days, as noted above. Discharge Exam Constitutional WD/WN, vitals as above Respiratory normal respiratory effort, lungs clear to auscultation Cardiovascular RRR, no murmur, no edema Gastrointestinal (Abdomen) normal bowel sounds, soft, nontender, no hepatosplenomegaly Psychiatric A+Ox3, euthymic affect Discharge Plan Discharge Items Patient Disposition: Home - Self-Care Reason For Visit: ABD PAIN WORSENING PANCREATITIS, PANCREATIC CYST Discharge Diagnosis: Acute pancreatitis Complex pancreatic cyst New onset type 2 diabetes mellitus Acute kidney injury from dehydration-resolved Condition on Discharge: Good Activity: Resume your previous activity Non-emergency contact: Primary Care Provider and V[employer] Programmer Call non-emergency contact if: you have any medication questions, your symptoms worsen and your pain is not controlled Follow-up/Referrals: Davie Hernandez [Primary Care Provider] - (Please follow-up within 1 to 2 weeks. Call for an appointment.) Tu Wright MD [Physician] - (A referral will be arranged for you to [facility] for your endoscopic ultrasound of the pancreas.) Diet: Carb Consistent or DM2 and Low Fat Addtl Attending Provider Instructions: You are admitted with pancreatitis and treated with bowel rest and IV fluids. This improved. You have a large cyst on your pancreas that needs further evaluation to rule out cancer or other serious health problems. Please continue a low-fat diet and avoid drinking any alcohol. Because chlorthalidone and sometimes valsartan can cause pancreatitis, please discontinue these medicines. Amlodipine was started instead to help control your blood pressure. You were also diagnosed with diabetes while you are here. Please start metformin once a day and follow-up with your primary care physician. Diabetic testing supplies were sent to your pharmacy. Pending Studies at Discharge: No Stand-Alone Forms: My [facility], Smoking Cessation Medications and DC Order Prescriptions: New amlodipine [Norvasc] 5 mg Tablet 5 mg PO QAM Qty: 30 0RF metformin 500 mg tablet extended release 24 hr 500 mg PO DAILY Qty: 30 0RF (DME) OneTouch Verio test strips Strip See Rx Instructions .Route Qty: 30 3RF Rx Instructions: for glucose testing once daily (DME) lancets [OneTouch Delica Plus Lancet] 33 gauge [facility] [place] See Rx Instructions .Route Qty: 100 0RF Rx Instructions: For glucose testing once daily (DME) blood-glucose meter [OneTouch Verio Flex meter] [place] See Rx Instructions .Route Qty: 1 0RF Rx Instructions: As directed once daily for glucose testing Discontinued chlorthalidone 25 mg tablet 25 mg PO QAM valsartan 320 mg tablet 320 mg PO DAILY Discharge Orders: Discharge Order (Routine); Ordered 08/13/24 Ordered By: Amber Shelby Admission Data Admit Date/Time: 08/12/24 01:41 Attending Provider: Amber Shelby Admit Provider: Arun Leigh Primary Care Provider: Davie Hernandez Other Providers: Arun Leigh; Payal Wadsworth Jr Hospital Stay Data Consultations 08/12/24 00:58 Consult Gastroenterology Routine ED Decision to Admit Stat Diagnostic Imagining Performed 08/11/24 22:55 CT abd pelvis wo con Stat 08/12/24 01:34 MRI Abdomen [MR abdomen wo/w con] Stat Pending Results Patient Have Any Pending Studies at Discharge: No Discharge Instructions Given to Patient (Per Discharging Provider) You are admitted with pancreatitis and treated with bowel rest and IV fluids. This improved. You have a large cyst on your pancreas that needs further evaluation to rule out cancer or other serious health problems. Please continue a low-fat diet and avoid drinking any alcohol. Because chlorthalidone and sometimes valsartan can cause pancreatitis, please discontinue these medicines. Amlodipine was started instead to help control your blood pressure. You were also diagnosed with diabetes while you are here. Please start metformin once a day and follow-up with your primary care physician. Diabetic testing supplies were sent to your pharmacy. Total Time Total Time Spent Total Time Spent (In Minutes): 35 min Total Time Includes: Examination of the Patient, Discharge Planning and Medication Reconciliation Coding Level of Care Code 94511 INP/OBS DISCH >30 MIN Diagnoses Acute pancreatitis K85.80 Acute pancreatitis complication: no infection or necrosis Pancreatitis type: other Pancreas cyst K86.2 LEILA (acute kidney injury) N17.9 Hypokalemia E87.6 HTN (hypertension) I10 Diabetes mellitus E11.9 Hypomagnesemia E83.42
== END 2024-08-13 12:19 | disposition home or self-care (01) | DRG 439 ==
LOC: ED 21:52 → 3W 08-12 01:41 → SUATTDRO 08-12 01:41 → 3W 08-12 02:30